=== PATIENT | male | born 1965 | race Caucasian/White ===

== ENCOUNTER 2016-08-04 16:30 | Observation (INO) | payer MEDICARE, MEDICAID ==
[~2016-08-04] VITALS: Ht 170.2 cm; Wt 75.4 kg
[2016-08-04 17:21] LABS: BASOPHILS % (AUTO) 0 % (0-2); EOSINOPHILS # (AUTO) 0.1 10^3uL; EOSINOPHILS % (AUTO) 1 % (0-4); LYMPHOCYTES # (AUTO) 3.1 X10^3; MEAN CORPUSCULAR HGB CONC 35.3 g/dL (31.0-37.0); MEAN CORPUSCULAR VOLUME 90 FL (80-100); MEAN PLATELET VOLUME 10.7 FL (6.0-9.5); MONOCYTES # (AUTO) 0.7 X10^3; MONOCYTES % (AUTO) 10 % (3-11); NEUTROPHILS # (AUTO) 3.7 X10^3; NEUTROPHILS % (AUTO) 49 % (51-67); PLATELET COUNT 149 10^3uL (150-450); WHITE BLOOD COUNT 7.61 10^3uL (4.0-11.0)
[2016-08-04 17:22] LABS: MEAN CORPUSCULAR HEMOGLOBIN 31.8 PG (26.0-34.0)
[2016-08-04 17:36] LABS: ALBUMIN 4.3 g/dL (3.4-5.0); ANION GAP 19.3 MEQ/L (3-15); TOTAL PROTEIN 7.5 g/dL (6.4-8.5)
[2016-08-04] MEDS ORDERED: LORazepam 2 MG/ML (ATIVAN) 1 ML VIAL IV ONE ×2 (18:35→20:35)
[2016-08-04 18:36] LABS: BILIRUBIN,URINE Negative (Negative); CLARITY,URINE Clear; COLOR,URINE Yellow; GLUCOSE, URINE (UA) Negative (Negative); LEUKOCYTE ESTERASE ,URINE Negative (Negative); UROBILINOGEN,URINE 0.2 mg/dL (0.2-1.0)
[2016-08-04 18:46] LABS: AMPHETAMINE SCREEN, URINE Positive (Negative); CANNABINOID SCREEN, URINE Positive (Negative); METHAMPHETAMINE SCREEN URINE S POSITIVE (NEGATIVE); OPIATE SCREEN URINE Negative (Negative); PROPOXYPHENE STAT NEGATIVE (NEGATIVE)
[2016-08-04] MEDS ORDERED: THIAMINE 100 MG/ML (VITAMIN B1) 2 ML VIAL ONE (20:34)
[2016-08-04] MEDS ORDERED: MULTIVITAMINS (MVI) 2 5 ML VIALS IV ONE (20:35)
[2016-08-04] MEDS ORDERED: MAGNESIUM SULFATE 1 GM/2 ML VIAL ONE ×2 (20:35→23:15)
[2016-08-04] MEDS: MAGNESIUM SULFATE 1GM VIAL 2 GM, THIAMINE INJ 100 MG, MULTIVITAMIN INJ 10 ML in D5LR 1,... IV SCH ×2 (20:40→23:16)
--- NOTE | 2016-08-04 21:34 | NUR ---
CLINICAL PRODUCT SPECIALIST JAYCOB MCLEAN NOTIFIED OF PT ADMIT TO ICU RM [id number]
[2016-08-04 21:40] VITALS: BP 105/77
[2016-08-04 21:43] VITALS: BP 105/77
[2016-08-04 22:00] VITALS: BP 100/69
[2016-08-04 23:00] VITALS: BP 98/68
[2016-08-04] MEDS ORDERED: HYDROmorphone 1 MG/ML (DILAUDID) SYRINGE IV PRN (23:05)
[2016-08-04] MEDS ORDERED: D5LR 1,000 ML IV ONE (23:14)
[2016-08-04] MEDS: LORazepam 2 MG/ML (ATIVAN) 1 ML VIAL IV PRN (23:15)
[2016-08-04] MEDS ORDERED: LORazepam 2 MG/ML (ATIVAN) 1 ML VIAL IV PRN (23:30)
[2016-08-04] MEDS ORDERED: HALOPERIDOL 5 MG/ML (HALDOL) 1 ML AMP IM PRN (23:30)
[2016-08-04] MEDS ORDERED: THIAMINE 100 MG/ML (VITAMIN B1) 2 ML VIAL IM SCH (23:30)
--- NOTE | 2016-08-04 23:30 | NUR ---
CORRECTION NOTE: CORRECT STOP TIME FOR ADMINISTERED 1 MG IV ATIVAN (ADMIN DATE AND TIME: 08/04/162314) IS 08/04/162317.
[2016-08-04] MEDS ORDERED: IBUPROFEN 600 MG (MOTRIN) TAB PO PRN (23:35)
[2016-08-04] MEDS ORDERED: ONDANSETRON 2 MG/ML (Z0FRAN) 2 ML VIAL IV PRN (23:35)
[2016-08-05] VITALS (9 sets, daily range): BP systolic 93–145; BP diastolic 55–91
[2016-08-05] MEDS: MULTIVITAMIN INJ 10 ML, THIAMINE INJ 100 MG, MAGNESIUM SULFATE 1GM VIAL 2 GM in D5LR 1,... IV SCH ×2 (00:14→13:01)
[2016-08-05] MEDS: MAGNESIUM SULFATE 1GM VIAL 2 GM, THIAMINE INJ 100 MG, MULTIVITAMIN INJ 10 ML in D5LR 1,... IV SCH (00:14)
[2016-08-05] MEDS: LORazepam 2 MG/ML (ATIVAN) 1 ML VIAL IV PRN ×4 (03:34→15:00)
[2016-08-05 06:35] LABS: BASOPHILS % (AUTO) 0 % (0-2); EOSINOPHILS # (AUTO) 0.1 10^3uL; EOSINOPHILS % (AUTO) 1 % (0-4); LYMPHOCYTES # (AUTO) 2.6 X10^3; MEAN CORPUSCULAR HEMOGLOBIN 31.1 PG (26.0-34.0); MEAN CORPUSCULAR HGB CONC 34.3 g/dL (31.0-37.0); MEAN CORPUSCULAR VOLUME 91 FL (80-100); MEAN PLATELET VOLUME 10.6 FL (6.0-9.5); MONOCYTES # (AUTO) 0.5 X10^3; MONOCYTES % (AUTO) 7 % (3-11); NEUTROPHILS # (AUTO) 3.4 X10^3; NEUTROPHILS % (AUTO) 51 % (51-67); PLATELET COUNT 149 10^3uL (150-450); WHITE BLOOD COUNT 6.58 10^3uL (4.0-11.0)
[2016-08-05 07:14] LABS: ALBUMIN 3.7 g/dL (3.4-5.0); ANION GAP 15.4 MEQ/L (3-15); CALCULATED IONIZED CALCIUM 3.7 mg/dL (3.8-4.6); TOTAL PROTEIN 6.9 g/dL (6.4-8.5)
--- NOTE | 2016-08-05 07:15 | NUR ---
See ICU assessment - reports chronic LBP and neck pain - "I need my meds" - "I'm so anxious" - drifts back to sleep if not talking - reports smokes 3 ppd - moist cough due to upper airway secretions - C
[2016-08-05] MEDS ORDERED: DOCUSATE SODIUM 100 MG (COLACE) CAP PO PRN (07:30)
[2016-08-05] MEDS ORDERED: MAGNESIUM HYDROXIDE 80MG/ML (MILK OF MAGNESIA) 30 ML UDC PO PRN (07:30)
[2016-08-05] MEDS ORDERED: MAG HYDROX/AL HYDROX/SIMETH 200-200-20/5 ML (MAG-AL PLUS) 30 ML UDC PO PRN (07:30)
[2016-08-05] MEDS ORDERED: HALOPERIDOL 5 MG/ML (HALDOL) 1 ML AMP IM PRN (07:30)
[2016-08-05] MEDS ORDERED: POLYETHYLENE GLYCOL 17 GM (MIRALAX) PACKET PO PRN (07:30)
[2016-08-05] MEDS ORDERED: ONDANSETRON 4 MG (ZOFRAN) TABLET PO PRN (07:30)
[2016-08-05] MEDS ORDERED: CALCIUM CARBONATE CHEWABLE 300 MG (TUMS) TABLET PO PRN (07:30)
--- NOTE | 2016-08-05 07:30 | NUR ---
Ibuprofen 600 mg po for c/o LBP
[2016-08-05] MEDS ORDERED: SODIUM CHLORIDE FLUSH 3 ML SYR ONE (07:34)
--- NOTE | 2016-08-05 07:50 | NUR ---
Ativan 1 mg slow IV push - mixed in 2 ML NS
--- NOTE | 2016-08-05 08:10 | NUR ---
Ate 50% of brkft - moves self in bed with ease - back to sleep
--- NOTE | 2016-08-05 08:35 | NUR ---
IV fluids DC'd
--- NOTE | 2016-08-05 08:48 | NUR ---
NUTRITION ASSESSMENT Level 1 Patient: Diego Lawson Age/Sex: 51/M Date Screened: 08-05-16 Weight: 165.8#/75.4 kg Height: 67 inches Primary Diagnosis: alcohol intoxication Diet Order: regular Relevant labs: serum alcohol 97.0 (410.0 on admission), UDS (+) amphetamines, methamphetamines and cannabinoids, glucose 99, AST 160, ALT 139 Food allergies: N Nutrition Assessment Criteria Age over 80: N Body Mass Index (BMI) under 19: N Admission Screening Indicates Risk? 3 points Moderate/High Risk Diagnosis: 6 points TPN or PPN: N NPO or clear liquid diet: N Serum Glucose <70 or >180: N Hgb A1c >6.7: N/A Total: 9 points Risk Screen: __ Patient at low nutritional risk based on available data; reevaluate in 5-7 days __ Patient at moderate nutritional risk based on available data; reevaluate in 3-5 days _X_ Patient at high nutritional risk; complete Nutrition Assessment within 48 hours of admission.
[2016-08-05] MEDS ORDERED: ATENOLOL 25 MG (TENORMIN) TAB PO SCH ×2 (09:00)
[2016-08-05] MEDS ORDERED: NICOTINE 21 MG (NICODERM) PATCH TD SCH ×2 (09:00)
[2016-08-05] MEDS ORDERED: LORazepam 2 MG/ML (ATIVAN) 1 ML VIAL IV PRN ×3 (09:00→17:10)
--- NOTE | 2016-08-05 09:20 | NUR ---
Radial pulse 92 - 50 mg tenormin po
[2016-08-05] MEDS ORDERED: NS FLUSH 10 ML PRN IV (09:30)
--- NOTE | 2016-08-05 09:50 | NUR ---
Estrella Rodriguez with [facility] will be here at 14:00 to evaluate Pt.
--- NOTE | 2016-08-05 10:25 | NUR ---
Condition report called to RN to assume care
--- NOTE | 2016-08-05 10:30 | NUR ---
Arrives per w/c to room 310 from ICU accompanied by Gaby ALLEN. Alert and oriented x4. Skin w/p/d. Resp reg and unlabored.
--- NOTE | 2016-08-05 10:30 | NUR ---
Ambulated to toilet - voided - startles when awaken and immediately asks for pain med and anxiety med - ambulated pushing w/c 30 feet - to room 310 - patient transferred self with ease to bed "I want chicken noodle soup and crackers, I haven't eaten for awhile" - "I want some pain med too"
--- NOTE | 2016-08-05 10:35 | NUR ---
Personal belongings taken to room
[2016-08-05] MEDS ORDERED: IBUPROFEN 600 MG (MOTRIN) TAB PO PRN (11:35)
--- NOTE | 2016-08-05 13:55 | NUR ---
Mandy mclean patient requesting pain med. Had to awaken patient for pain med at this time. Reports pain neck/back 10:10.
--- NOTE | 2016-08-05 14:15 | NUR ---
reports last BM 08/03
--- NOTE | 2016-08-05 14:32 | NUR ---
[facility] here to see patient
[2016-08-05] MEDS ORDERED: MAGNESIUM SULFATE 1 GM/2 ML VIAL ONE (14:58)
[2016-08-05] MEDS ORDERED: MULTIVITAMINS (MVI) 2 5 ML VIALS IV ONE (14:58)
[2016-08-05] MEDS: NS FLUSH 3 ML PRN IV ×2 (15:01→16:33)
[2016-08-05] MEDS ORDERED: MULTIVITAMIN INJ 10 ML, THIAMINE INJ 100 MG, MAGNESIUM SULFATE 1GM VIAL 2 GM in D5LR 1,... IV SCH (15:05)
--- NOTE | 2016-08-05 15:12 | NUR ---
[facility] here to see Pt. and recommends inpatient psychiatric placement due to Pt. still endorsing suicidal ideation and alcohol withdrawal. [facility] crisis team was contacted and they stated have openings at the [facility]. SW contacted them and faxed information over to [facility] to review.
--- NOTE | 2016-08-05 16:41 | NUR ---
Chicken noodle soup given earlier as request. Requesting more at this time. Mandy BARROS notified.
--- NOTE | 2016-08-05 18:12 | NUR ---
Transfered to [place] per EMS accompanied by EMS staff. ALert and oriented x 4. skin w/p/d. Resp reg and unlabored.
--- NOTE | 2016-08-05 18:20 | NUR ---
Mohini Braden at [facility] was notified of time of EMS departure as requested per [facility] green clerk.
[2016-08-06] MEDS ORDERED: NICOTINE PATCH REMOVAL TOP SCH (08:59)
[2016-08-06] MEDS ORDERED: NS FLUSH 3 ML DAILY IV SCH (09:00)
[2016-08-07] MEDS ORDERED: THIAMINE 100 MG (VITAMIN B-1) TAB PO SCH ×2 (08:00)
[2016-08-07] MEDS ORDERED: MULTIVITAMIN W/MINERALS (THERAGRAN M) TABLET PO SCH ×2 (08:00)
== END 2016-08-05 18:12 ==
LOC: ED 16:32 → ICU 20:46 → INTOOBSV 20:46 → MED/SURG 08-05 10:30
PROVIDERS: ADMIT Family Medicine; ATTEND Family Medicine
DX: F10.220 Alcohol dependence with intoxication, uncomplicated (principal); F15.220 Other stimulant dependence with intoxication, uncomplicated; F25.9 Schizoaffective disorder, unspecified; R45.851 Suicidal ideations; F60.9 Personality disorder, unspecified; F41.9 Anxiety disorder, unspecified; B19.20 Unspecified viral hepatitis C without hepatic coma; I10 Essential (primary) hypertension; J44.9 Chronic obstructive pulmonary disease, unspecified; F17.210 Nicotine dependence, cigarettes, uncomplicated
CPT/HCPCS: 36415; 80053; 81003; 82140; 82150; 83690; 84484; 85025; 93005; 96361; 96365; 96372; 96375; 96376; 99283; A9270; G0378; G0478; G0480; J1170; J1630; J2060; J3411; J3475; J7030; 80307; 80320; 93010; 96374; 99218; 99285

== ENCOUNTER → 2016-08-05 | Outpatient (CLI) | payer MEDICARE, MEDICAID | LOC: EMS 18:15 | PROVIDERS: ATTEND Internal Medicine | DX: R45.851 Suicidal ideations (principal); F20.9 Schizophrenia, unspecified ==

== ENCOUNTER 2016-10-16 16:23 | Observation (INO) | payer MEDICARE, MEDICAID ==
[~2016-10-16] VITALS: Ht 170.2 cm; Wt 77.3 kg
[~2016-10-16 16:23] MED LIST: ACHYD1T PO; ALBU2.5V4 IH; ARIP10TA14 PO; CEPH-507 PO; CHLR25C PO; CLIN-78 PO; CLIN-79 PO; CMBV14CC IH; CMBV14CC INH; CPR500T PO; DOXY100T41 PO; ESCI10TA PO; ESCI20TA39 PO; FAMO-119 PO; HYDR-3708 PO; HYDR-3811 PO; IBUP-1096 PO; IPRA12.92 IH; IPRA4AER; IPRA4AER INH; LEVO50TA6 EC; LEVO50TA6 PO; LIDOVISC MT; LITH300T PO; LITH600C PO; LVT.05T PO; Lithium; MELO-255; MELO-255 PO; METH10TA2 PO; MMT17NA; Methadone; NFPRILOC40 PO; NFVALS90T PO; OLAN10TA3 PO; OLN10T; OLN10T PO; OMEP20CA12 PO; OMEP40CA36; OMEP40CA36 PO; OXYC10TA7 PO; OXYC10TA74 PO; OXYC15TA79 PO; Oxycodone; PRX10T PO; SULF-221 PO; SYNTROID; TIOT18CA; TIOT18CA IH; TIOT18CA INH; TOPI50CA5 PO; TRAM100T28 PO; TRAZ100T92 PO; TRM50T PO; VALS160T2 PO; VALS160T23 PO; VALS320T11 PO; VALS80TA29 PO
--- OUTSIDE RECORDS SUMMARY | 2016-10-16 16:29 | XMS REPORT | Continuity of Care Document ---
Author Author [facility] Organization [facility] Address Unknown Phone Unavailable Allergies Active Description Code Type Severity Reaction Onset Reported/Identified Relationship to Patient Clinical Status Yes No Known Drug Allergies [id number] Drug Allergy Unknown N/ A 01/07/2012 Yes No Known Medication Allergies NKMA N/A N/A 08/13/2014 Yes No Known Allergies [id number] Drug Allergy Unknown N/A 08/04/2016 Medications Problems Date Dx Coded Attending Type Code Diagnosis Diagnosed By 01/07/2012 Ot 782.1 01/07/2012 Ot 995.3 04/06/2012 Ot 303.00 06/22/2012 Ot 724.2 02/12/2014 JERI HOFFMAN DO Ot 276.51 02/12/2014 JERI HOFFMAN DO Ot 291.9 02/12/2014 JERI HOFFMAN DO Ot 304.81 02/12/2014 JERI HOFFMAN DO Ot 305.00 02/12/2014 JERI HOFFMAN DO Ot 305.01 02/12/2014 JERI HOFFMAN DO Ot 780.97 02/12/2014 JERI HOFFMAN DO Ot V15.81 02/18/2014 SANTA JENKINS, CECIL L Ot 521.00 02/18/2014 SANTA JENKINS, CECIL L Ot 525.9 02/18/2014 SANTA JENKINS, CECIL L Ot 784.92 04/07/2014 DANA JENKINS, LALY Ot 305.00 04/07/2014 DANA JENKINS, LALY Ot 338.29 04/07/2014 DANA JENKINS, LALY Ot 719.45 04/07/2014 DANA JENKINS, LALY Ot 723.1 04/07/2014 DANA JENKINS, LALY Ot 724.2 04/07/2014 DANA JENKINS, LALY Ot 782.0 04/07/2014 DANA JENKINS, LALY Ot 784.0 04/07/2014 DANA JENKINS, LALY Ot 959.19 04/07/2014 DANA JENKINS, LALY Ot E885.9 05/11/2014 DANA JENKINS, LALY Ot 724.2 05/31/2014 JOSE JENKINS, AMRIK H Ot 070.70 05/31/2014 JOSE JENKINS, AMRIK H Ot 244.9 05/31/2014 JOSE JENKINS, AMRIK H Ot 295.70 05/31/2014 JOSE JENKINS, AMRIK H Ot 303.00 05/31/2014 JOSE JENKINS, AMRIK H Ot 305.1 05/31/2014 JOSE JENKINS, AMRIK H Ot 305.70 05/31/2014 JOSE JENKINS, AMRIK H Ot 327.23 05/31/2014 JOSE JENKINS, AMRIK H Ot 338.29 05/31/2014 JOSE JENKINS, AMRIK H Ot 401.9 05/31/2014 JOSE JENKINS, AMRIK H Ot 477.9 05/31/2014 JOSE JENKINS, AMRIK H Ot 492.8 05/31/2014 JOSE JENKINS, AMRIK H Ot 521.00 05/31/2014 JOSE JENKINS, AMRIK H Ot 530.81 05/31/2014 JOSE JENKINS, AMRIK H Ot 571.1 05/31/2014 JOSE JENKINS, AMRIK H Ot 780.96 05/31/2014 JOSE JENKINS, AMRIK H Ot 786.50 05/31/2014 JOSE JENKINS, AMRIK H Ot 790.5 07/02/2014 JOSE JENKINS, AMRIK H Ot 295.90 07/04/2014 RICHARD JENKINS, DEACON P Ot 070.70 07/04/2014 RICHARD JENKINS, DEACON P Ot 244.9 07/04/2014 RICHARD JENKINS, DEACON P Ot 303.00 07/04/2014 RICHARD JENKINS, DEACON P Ot 305.90 07/04/2014 RICHARD JENKINS, DEACON P Ot 401.9 07/04/2014 RICHARD JENKINS, DEACON P Ot 492.8 07/04/2014 RICHARD JENKINS, DEACON P Ot 521.00 07/04/2014 RICHARD JENKINS, DEACON P Ot 530.81 07/04/2014 RICHARD JENKINS, DEACON P Ot 719.41 07/11/2014 OLGA QUINTANILLA DO Ot 719.41 07/11/2014 DWIGHT DO, OLGA Hernandez Ot 923.00 07/11/2014 DWIGHT DO, OLGA Hernandez Ot 924.01 07/11/2014 DWIGHT DO, OLGA Hernandez Ot E849.0 07/11/2014 DWIGHT DO, OLGA Hernandez Ot E885.9 07/20/2014 DWIGHT DO, OLGA Hernandez Ot 496 07/20/2014 DWIGHT DO, OLGA Hernandez Ot 719.45 07/20/2014 DWIGHT DO, OLGA Hernandez Ot E888.9 07/27/2014 RICHARD JENKINS, DEACON P Ot 296.80 07/27/2014 RICHARD JENKINS, DEACON P Ot 496 08/17/2014 DWIGHT DO, OLGA M Ot 496 08/17/2014 DWIGHT DO, OLGA Hernandez Ot 719.45 08/17/2014 DWIGHT DO, OLGA Hernandez Ot E888.9 08/20/2014 DWIGHT DO, OLGA Hernandez Ot 496 08/20/2014 DWIGHT DO, OLGA Hernandez Ot 719.45 08/20/2014 DWIGHT DO, OLGA Hernandez Ot E888.9 09/03/2014 Ot 305.01 09/03/2014 Ot 305.1 09/03/2014 Ot 305.70 09/03/2014 Ot 311 09/03/2014 Ot V62.84 09/27/2014 RICHARD JENKINS, DEACON P Ot 070.70 09/27/2014 RICHARD JENKINS, DEACON P Ot 244.9 09/27/2014 RICHARD JENKINS, DEACON P Ot 275.2 09/27/2014 RICHARD JENKINS, DEACON P Ot 275.3 09/27/2014 RICHARD JENKINS, DEACON P Ot 291.81 09/27/2014 RICHARD JENKINS, DEACON P Ot 303.00 09/27/2014 RICHARD JENKINS, DEACON P Ot 305.1 09/27/2014 RICHARD JENKINS, DEACON P Ot 305.90 09/27/2014 RICHARD JENKINS, DEACON P Ot 327.23 09/27/2014 RICHARD JENKINS, DEACON P Ot 338.29 09/27/2014 RICHARD JENKINS, DEACON P Ot 401.9 09/27/2014 RICHARD JENKINS, DEACON P Ot 477.9 09/27/2014 RICHARD JENKINS, DEACON P Ot 496 09/27/2014 RICHARD JENKINS, DEACON P Ot 521.00 09/27/2014 RICHARD JENKINS, DEACON P Ot 530.81 09/27/2014 RICHARD JENKINS, DEACON P Ot 802.0 09/27/2014 RICHARD JENKINS, DEACON P Ot 919.0 09/27/2014 RICHARD JENKINS, DEACON P Ot E000.8 09/27/2014 RICHARD JENKINS, DEACON P Ot E030 09/27/2014 RICHARD JENKINS, DEACON P Ot E849.7 09/27/2014 RICHARD JENKINS, DEACON P Ot E888.9 10/18/2014 CHELE JENKINS, CARLITA P Ot 784.7 11/25/2014 LUCRECIA JENKINS, NESSA R Ot 305.00 11/25/2014 LUCRECIA JENKINS, NESSA R Ot 305.90 11/25/2014 LUCRECIA JENKINS, NESSA R Ot 682.4 11/28/2014 RICHARD JENKINS, DEACON P Ot 070.70 11/28/2014 RICHARD JENKINS, DEACON P Ot 244.9 11/28/2014 RICHARD JENKINS, DEACON P Ot 303.00 11/28/2014 RICHARD JENKINS, DEACON P Ot 305.1 11/28/2014 RICHARD JENKINS, DEACON P Ot 305.90 11/28/2014 RICHARD JENKINS, DEACON P Ot 327.23 11/28/2014 RICHARD JENKINS, DEACON P Ot 338.29 11/28/2014 RICHARD JENKINS, DEACON P Ot 401.9 11/28/2014 RICHARD JENKINS, DEACON P Ot 477.9 11/28/2014 RICHARD JENKINS, DEACON P Ot 496 11/28/2014 RICHARD JENKINS, DEACON P Ot 521.00 11/28/2014 RICHARD JENKINS, DEACON P Ot 530.81 11/28/2014 RICHARD JENKINS, DEACON P Ot 682.4 12/02/2014 Ot V58.69 12/02/2014 Ot V58.69 12/02/2014 Ot V64.2 12/02/2014 DANA JENKINS, LALY Ot 724.2 12/02/2014 Ot 786.09 12/02/2014 JOSE JENKINS, AMRIK Cruz Ot 295.90 12/02/2014 RICHARD JENKINS, DEACON P Ot 296.80 12/02/2014 RICHARD JENKINS, DEACON P Ot 496 12/02/2014 DWIGHT DO, OLGA M Ot 496 12/02/2014 DWIGHT DO, OLGA M Ot 719.45 12/02/2014 DWIGHT DO, OLGA M Ot E888.9 12/02/2014 CHELE JENKINS, CARLITA Mccrary Ot 784.7 12/02/2014 CHELE JENKINS, CARLITA P Ot 682.4 12/06/2014 RICHARD JENKINS, DEACON P Ot 070.70 12/06/2014 RICHARD JENKINS, DEACON P Ot 295.72 12/06/2014 RICHARD JENKINS, DEACON P Ot 303.00 12/06/2014 RICHARD JENKINS, DEACON P Ot 305.90 12/06/2014 RICHARD JENKINS, DEACON P Ot 327.23 12/06/2014 RICHARD JENKINS, DEACON P Ot 338.29 12/06/2014 RICHARD JENKINS, DEACON P Ot 401.9 12/06/2014 RICHARD JENKINS, DEACON P Ot 496 12/06/2014 RICHARD JENKINS, DEACON P Ot 530.81 12/06/2014 RICHARD JENKINS, DEACON P Ot 682.4 12/06/2014 RICHARD JENKINS, DEACON P Ot 786.50 12/06/2014 RICHARD JENKINS, DEACON P Ot V62.84 12/31/2014 RICHARD JENKINS, DEACON P Ot 305.90 01/08/2015 DWIGHT DO, OLGA M Ot 305.00 01/08/2015 DWIGHT DO, OLGA M Ot 305.90 01/10/2015 Ot V58.69 01/10/2015 Ot V58.69 01/10/2015 Ot V64.2 01/10/2015 DANA JENKINS, LALY Ot 724.2 01/10/2015 Ot 786.09 01/10/2015 JOSE JENKINS, AMRIK Cruz Ot 295.90 01/10/2015 RICHARD JENKINS, DEACON P Ot 296.80 01/10/2015 RICHARD JENKINS, DEACON P Ot 496 01/10/2015 DWIGHT DO, OLGA M Ot 496 01/10/2015 DWIGHT DO, OLGA M Ot 719.45 01/10/2015 DWIGHT DO, OLGA M Ot E888.9 01/10/2015 CHELE JENKINS, CARLITA Mccrary Ot 784.7 01/10/2015 RICHARD JENKINS, DEACON Mccrary Ot 305.90 01/10/2015 DWIGHT DO, OLGA M Ot 891.0 01/10/2015 DWIGHT DO, OLGA M Ot E000.9 01/10/2015 DWIGHT DO, OLGA M Ot E030 01/10/2015 DWIGHT DO, OLGA M Ot E849.0 01/10/2015 DWIGHT DO, OLGA M Ot E920.9 01/25/2015 RICHARD JENKINS, DEACON Mccrary Ot 305.90 02/08/2015 Ot 786.09 03/22/2015 Ot V58.69 03/22/2015 Ot V58.69 03/22/2015 Ot V64.2 03/22/2015 DANA JENKINS, LALY Ot 724.2 03/22/2015 Ot 786.09 03/22/2015 JOSE JENKINS, AMRIK H Ot 295.90 03/22/2015 RICHARD JENKINS, DEACON Mccrary Ot 296.80 03/22/2015 RICHARD JENKINS, DEACON Mccrary Ot 496 03/22/2015 DWIGHT DO, OLGA M Ot 496 03/22/2015 DWIGHT DO, OLGA M Ot 719.45 03/22/2015 DWIGHT DO, OLGA M Ot E888.9 03/22/2015 CHELE JENKINS, CARLITA P Ot 784.7 03/22/2015 RICHARD JENKINS, DEACON Mccrary Ot 305.90 03/22/2015 Ot V58.69 03/22/2015 Ot V58.69 03/22/2015 Ot V64.2 03/22/2015 DANA JENKINS, LALY Ot 724.2 03/22/2015 Ot 786.09 03/22/2015 JOSE JENKINS, AMRIK H Ot 295.90 03/22/2015 RICHARD JENKINS, DEACON Mccrary Ot 296.80 03/22/2015 RICHARD JENKINS, DEACON Mccrary Ot 496 03/22/2015 DWIGHT DO, OLGA M Ot 496 03/22/2015 DWIGHT DO, OLGA M Ot 719.45 03/22/2015 DWIGHT DO, OLGA M Ot E888.9 03/22/2015 CHEEL JENKINS, CARLITA P Ot 784.7 03/22/2015 RICHARD JENKINS, DEACON P Ot 305.90 03/30/2015 Ot V58.69 03/30/2015 Ot V58.69 03/30/2015 Ot V64.2 03/30/2015 DANA JENKINS, LALY Ot 724.2 03/30/2015 Ot 786.09 03/30/2015 JOSE JENKINS, AMRIK Cruz Ot 295.90 03/30/2015 RICHARD JENKINS, DEACON P Ot 296.80 03/30/2015 RICHARD JENKINS, DEACON P Ot 496 03/30/2015 DWIGHT DO, OLGA M Ot 496 03/30/2015 DWIGHT DO, OLGA M Ot 719.45 03/30/2015 DIWGHT DO, OLGA M Ot E888.9 03/30/2015 CHELE JENKINS, CARLITA Mccrary Ot 784.7 03/30/2015 RICHARD JENKINS, DEACON P Ot 305.90 04/02/2015 RICHARD JENKINS, DEACON P Ot B19.20 04/02/2015 RICHARD JENKINS, DEACON P Ot E03.9 04/02/2015 RICHARD JENKINS, DEACON P Ot F10.129 04/02/2015 RICHARD JENKINS, DEACON P Ot F10.239 04/02/2015 RICHARD JENKINS, DEACON P Ot F19.90 04/02/2015 RICHARD JENKINS, DEACON P Ot F41.9 04/02/2015 RICHARD JENKINS, DEACON P Ot I10 04/02/2015 RICHARD JENKINS, DEACON P Ot J44.1 04/02/2015 RICHARD JENKINS, DEACON P Ot J80 04/02/2015 RICHARD JENKISN, DEACON P Ot K21.9 04/02/2015 RICHARD JENKINS, DEACON P Ot R79.89 04/02/2015 RICHARD JENKINS, DEACON P Ot T74.11XA 04/02/2015 RICHARD JENKINS, DEACON P Ot Y90.8 04/15/2015 BELEN JENKINS, DWAIN Yoo Ot E87.0 04/15/2015 BELEN JENKINS, DWAIN W Ot F10.129 04/15/2015 BELEN JENKINS, DWAIN W Ot F10.20 04/15/2015 BELEN JENKINS, DWAIN Yoo Ot F19.10 04/15/2015 BELEN JENKINS, DWAIN Yoo Ot F20.9 04/15/2015 BELEN JENKINS, DWAIN Yoo Ot F41.9 04/15/2015 BELEN JENKINS, DWAIN W Ot J44.9 04/15/2015 BELEN JENKINS, DWAIN W Ot Y90.8 05/03/2015 Ot 786.09 07/25/2015 Ot V58.69 07/25/2015 Ot V58.69 07/25/2015 Ot V64.2 07/25/2015 DANA JENKINS, LALY Ot 724.2 07/25/2015 Ot 786.09 07/25/2015 JOSE JENKINS, AMRIK Cruz Ot 295.90 07/25/2015 RICHARD JENKINS, DEACON Mccrary Ot 296.80 07/25/2015 RICHARD JENKINS, DEACON Mccrary Ot 496 07/25/2015 DWIGHT DO, OLGA Hernandez Ot 496 07/25/2015 DWIGHT DO, OLGA M Ot 719.45 07/25/2015 DWIGHT DO, OLGA M Ot E888.9 07/25/2015 CHLEE JENKINS, CARLITA Mccrary Ot 784.7 07/25/2015 RICHARD JENKINS, DEACON Mccrary Ot 305.90 07/26/2015 BELEN JENKINS, DWAIN Yoo Ot B19.20 07/26/2015 BELEN JENKINS, DWAIN Yoo Ot F10.220 07/26/2015 BELEN JENKINS, DWAIN W Ot F11.20 07/26/2015 BELEN JENKINS, DWAIN W Ot F25.9 07/26/2015 BELEN JENKINS, DWAIN Yoo Ot G89.29 07/26/2015 BELEN JENKINS, DWAIN Yoo Ot K13.21 07/26/2015 BELEN JENKINS, DWAIN W Ot S01.21XA 07/26/2015 BELEN JENKINS, DWAIN W Ot S01.81XA 07/26/2015 BELEN JENKINS, DWAIN W Ot S51.011A 07/26/2015 BELEN JENKINS, DWAIN Yoo Ot Y08.02XA 08/10/2015 RICHARD JENKINS, DEACON Mccrary Ot B19.20 08/10/2015 RICHARD JENKINS, DEACON P Ot F10.220 08/10/2015 RICHARD JENKINS, DEACON P Ot F11.20 08/10/2015 RICHARD JENKINS, DEACON Mccrary Ot F15.10 08/10/2015 RICHARD JENKINS, DEACON P Ot F25.9 08/10/2015 RICHARD JENKINS, DEACON P Ot G47.33 08/10/2015 RICHARD JENKINS, DEACON P Ot G89.21 08/10/2015 RICHARD JENKINS, DEACON P Ot I10 08/10/2015 RICHARD JENKINS, DEACON P Ot J18.9 08/10/2015 RICHARD JENKINS, DEACON P Ot J44.9 08/10/2015 RICHARD JENKINS, DEACON P Ot K13.21 08/10/2015 RICHARD JENKINS, DEACON P Ot K21.9 08/10/2015 RICHARD JENKINS, DEACON P Ot R45.851 08/10/2015 RICHARD JENKINS, DEACON P Ot Z72.0 08/13/2015 EVA JENKINS, SIMÓN W Ot B19.20 08/13/2015 EVA JENKINS, SIMÓN W Ot F10.129 08/13/2015 EVA JENKINS, SIMÓN W Ot F11.20 08/13/2015 EVA JENKINS, SIMÓN Yoo Ot F17.210 08/13/2015 EVA JENKINS, SIMÓN Yoo Ot I10 08/13/2015 EVA JENKINS, SIMÓN W Ot M54.5 08/13/2015 EVA JENKINS, SIMÓN W Ot R07.89 08/13/2015 EVA JENKINS, SIMÓN Yoo Ot Y90.7 08/13/2015 EVA JENKINS, SIMÓN W Ot Z91.19 08/14/2015 EVA JENKINS, SIMÓN W Ot F10.129 08/14/2015 EVA JENKINS, SIMÓN Yoo Ot S01.81XA 08/14/2015 EVA JENKINS, SIMÓN Yoo Ot Y08.02XA 08/14/2015 EVA JENKINS, SIMÓN Yoo Ot Y92.029 08/23/2015 EVA JENKINS, SIMÓN Yoo Ot F10.129 08/23/2015 EVA JENKINS, SIMÓN Yoo Ot S01.81XA 08/23/2015 EVA JENKINS, SIMÓN Yoo Ot Y08.02XA 08/23/2015 EVA JENKINS, SIMÓN Yoo Ot Y92.029 08/25/2015 DANA JENKINS, LALY Ot F10.10 08/25/2015 DANA JENKINS, LALY Ot G89.29 08/25/2015 DANA JENKINS, LALY Ot I10 08/25/2015 DANA JENKINS, LALY Ot K04.7 08/25/2015 DANA JENKINS, LALY Ot M54.2 08/25/2015 DANA JENKINS, LALY Ot M54.89 08/25/2015 DANA JENKINS, LALY Ot R51 08/25/2015 DANA JENKINS, LALY Ot W21.11XA 08/25/2015 DANA JENKINS, LALY Ot Z72.0 09/11/2015 DANA JENKINS, LALY Ot F10.129 09/11/2015 DANA JENKINS, LALY Ot F99 09/13/2015 SIMÓN VELASQUEZ MD Ot R06.02 09/13/2015 SIMÓN VELASQUEZ MD Ot R07.9 09/13/2015 SIMÓN VELASQUEZ MD Ot R10.84 09/13/2015 SIMÓN VELASQUEZ MD Ot R55 09/19/2015 KWABENA VAUGHN MD, GALLO J Ot B19.20 09/19/2015 KWABENA VAUGHN MD, GALLO J Ot E86.0 09/19/2015 KWABENA VAUGHN MD, GALLO J Ot E87.0 09/19/2015 KWABENA VAUGHN MD, GALLO J Ot E87.2 09/19/2015 KWABENA VAUGHN MD, GALLO J Ot F10.220 09/19/2015 KWABENA VAUGHN MD, GALLO J Ot F15.10 09/19/2015 KWABENA VAUGHN MD, GALLO J Ot J44.9 09/19/2015 KWABENA VAUGHN MD, GALLO J Ot J80 09/19/2015 KWABENA VAUGHN MD, GALLO J Ot K13.21 09/19/2015 KWABENA VAUGHN MD, GALLO J Ot R56.9 09/19/2015 KWABENA VAUGHN MD, GALLO J Ot Y90.8 09/19/2015 LUCRECIA JENKINS, NESSA R Ot F99 09/19/2015 LUCRECIA JENKINS, NESSA R Ot R41.82 09/20/2015 DANA JENKINS, LALY Ot F10.129 09/20/2015 DANA JENKINS, LALY Ot F99 09/20/2015 SIMÓN VELASQUEZ MD Ot R06.02 09/20/2015 SIMÓN VELASQUEZ MD Ot R07.9 09/20/2015 SIMÓN VELASQUEZ MD Ot R10.84 09/20/2015 SIMÓN VELASQUEZ MD Ot R55 09/20/2015 Ot Z53.9 09/22/2015 Ot V58.69 09/22/2015 Ot V58.69 09/22/2015 Ot V64.2 09/22/2015 DANA JENKINS, LALY Ot 724.2 09/22/2015 Ot 786.09 09/22/2015 JOSE JENKINS, AMRIK H Ot 295.90 09/22/2015 RICHARD JENKINS, DEACON P Ot 296.80 09/22/2015 RICHARD JENKINS, DEACON P Ot 496 09/22/2015 DWIGHT DO, OLGA M Ot 496 09/22/2015 DWIGHT DO, OLGA M Ot 719.45 09/22/2015 DWIGHT DO, OLGA M Ot E888.9 09/22/2015 CHELE JENKINS, CARLITA Mccrary Ot 784.7 09/22/2015 RICHARD JENKINS, DEACON P Ot 305.90 09/22/2015 EVA JENKINS, SIMÓN Yoo Ot F10.129 09/22/2015 EVA JENKINS, SIMÓN Yoo Ot S01.81XA 09/22/2015 EVA JENKINS, SIMÓN Yoo Ot Y08.02XA 09/22/2015 EVA JENKINS, SIMÓN Yoo Ot Y92.029 09/22/2015 DANA JENKINS, LALY Ot F10.129 09/22/2015 DANA JENKINS, LALY Ot F99 09/22/2015 EVA JENKINS, SIMÓN Yoo Ot R06.02 09/22/2015 EVA JENKINS, SIMÓN Yoo Ot R07.9 09/22/2015 EVA JENKINS, SIMÓN Yoo Ot R10.84 09/22/2015 EVA JENKINS, SIMÓN Yoo Ot R55 09/22/2015 LUCRECIA JENKINS, NESSA Gamez Ot F99 09/22/2015 LUCRECIA JENKINS, NESSA Gamez Ot R41.82 09/22/2015 KATIUSKA PARKER DO Ot R07.81 PLEURODYNIA 09/22/2015 KATIUSKA PARKER DO Ot S22.31XA FRACTURE OF ONE RIB, RIGHT SIDE, INIT FO 09/22/2015 KATIUSKA PARKER DO Ot W19.XXXA UNSPECIFIED FALL, INITIAL ENCOUNTER 09/22/2015 KATIUSKA PARKER DO Ot Y92.[address] IN [facility] NON-INSTITUT ( PRIVATE 09/22/2015 KEITH DOZIER KATIUSKA Hernandez Ot Y93.89 ACTIVITY, OTHER SPECIFIED 09/24/2015 Ot Z53.9 09/25/2015 KEITH DOZIER KATIUSKA Hernandez Ot R07.81 09/25/2015 KEITH DOZIER KATIUSKA Hernandez Ot S22.31XA 09/25/2015 KEITH DOZIER KATIUSKA Hernandez Ot W19.XXXA 09/25/2015 KEITH DOZIER KATIUSKA Hernandez Ot Y92.009 09/25/2015 KEITH DOZIER KATIUSKA Hernandez Ot Y93.89 10/09/2015 NESSA SINGER MD Ot F99 10/09/2015 NESSA SINGER MD R Ot R41.82 10/16/2015 KEITH DOZIERKATIUSKA Ot F10.10 ALCOHOL ABUSE, UNCOMPLICATED 10/16/2015 KEITH DOZIER KATIUSKA Hernandez Ot R07.81 PLEURODYNIA 10/16/2015 KEITH DOZIER KATIUSKA Hernandez Ot W01.190A FALL SAME LEV FROM SLIP/TRIP W STRIKE AG 10/22/2015 LUCRECIA JENKINS, NESSA R Ot F99 MENTAL DISORDER, NOT OTHERWISE SPECIFIED 10/22/2015 NESSA SINGER MD R Ot R41.82 ALTERED MENTAL STATUS, UNSPECIFIED 10/22/2015 KEITH DOZIER KATIUSKA Mary Ot F10.10 ALCOHOL ABUSE, UNCOMPLICATED 10/22/2015 KEITH DOZIER KATIUSKA Mary Ot R07.81 PLEURODYNIA 10/22/2015 KEITH DOZIER KATIUSKA Mary Ot W01.190A FALL SAME LEV FROM SLIP/TRIP W STRIKE AG 01/03/2016 CARLITA ELAINE MD Ot F10.10 ALCOHOL ABUSE, UNCOMPLICATED 01/03/2016 CARLITA ELAINE MD Ot S00.93XA CONTUSION OF UNSPECIFIED PART OF HEAD, I 01/03/2016 CARLITA ELAINE MD Ot W18.39XA OTHER FALL ON SAME LEVEL, INITIAL ENCOUN 01/03/2016 CARLITA ELAINE MD Ot Y90.8 BLOOD ALCOHOL LEVEL OF 240 MG/100 ML OR 01/03/2016 CARLITA ELAINE MD Ot Y92.[address] IN [facility] NON-INST[facility] ( PRIVATE 01/07/2016 MIGGIANI MD, CARLITA P Ot F10.129 ALCOHOL ABUSE WITH INTOXICATION, UNSPECI 01/07/2016 CARLITA ELAINE MD Ot R55 SYNCOPE AND COLLAPSE 01/09/2016 CARLITA ELAINE MD Ot F10.10 ALCOHOL ABUSE, UNCOMPLICATED 01/09/2016 CARLITA ELAINE MD Ot S00.93XA CONTUSION OF UNSPECIFIED PART OF HEAD, I 01/09/2016 CARLITA ELAINE MD Ot W18.39XA OTHER FALL ON SAME LEVEL, INITIAL ENCOUN 01/09/2016 CARLITA ELAINE MD Ot Y90.8 BLOOD ALCOHOL LEVEL OF 240 MG/100 ML OR 01/09/2016 CARLITA ELAINE MD Ot Y92.[address] IN [facility] NON-INSTITUT ( PRIVATE 01/30/2016 CARLITA ELAINE MD Ot F10.129 ALCOHOL ABUSE WITH INTOXICATION, UNSPECI 01/30/2016 CARLITA ELAINE MD Ot R55 SYNCOPE AND COLLAPSE 02/17/2016 CARLITA ELAINE MD Ot F10.129 ALCOHOL ABUSE WITH INTOXICATION, UNSPECI 02/17/2016 CARLITA ELAINE MD Ot R55 SYNCOPE AND COLLAPSE 02/27/2016 SIMÓN VELASQUEZ MD, Ot F10.129 ALCOHOL ABUSE WITH INTOXICATION, UNSPECI 02/27/2016 SIMÓN VELASQUEZ MD, Ot F17.200 NICOTINE DEPENDENCE, UNSPECIFIED, UNCOMP 02/27/2016 SIMÓN VELASQUEZ MD, Ot G50.1 ATYPICAL FACIAL PAIN 02/27/2016 SIMÓN VELASQUEZ MD, Ot 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 CHRONIC MAXILLARY SINUSITIS 02/27/2016 SIMÓN VELASQUEZ MD, Ot J34.1 CYST AND MUCOCELE OF NOSE AND NASAL SINU 02/27/2016 SIMÓN VELASQUEZ MD, Ot K04.7 PERIAPICAL ABSCESS WITHOUT SINUS 02/27/2016 SIMÓN VELASQUEZ MD, Ot Y90.7 BLOOD ALCOHOL LEVEL OF 200-239 MG/100 ML 03/03/2016 SIMÓN VELASQUEZ MD Ot F17.200 NICOTINE DEPENDENCE, UNSPECIFIED, UNCOMP 03/03/2016 SIMÓN VELASQUEZ MD, Ot G50.1 ATYPICAL FACIAL PAIN 03/03/2016 SIMÓN VELASQUEZ MD, Ot J32.0 CHRONIC MAXILLARY SINUSITIS 03/03/2016 SIMÓN VELASQUEZ MD, Ot J34.1 CYST AND MUCOCELE OF NOSE AND NASAL SINU 03/03/2016 SIMÓN VELASQUEZ MD, Ot K04.7 PERIAPICAL ABSCESS WITHOUT SINUS 03/03/2016 SIMÓN VELASQUEZ MD, Ot F10.129 ALCOHOL ABUSE WITH INTOXICATION, UNSPECI 03/03/2016 SIMÓN VELASQUEZ MD, Ot F17.200 NICOTINE DEPENDENCE, UNSPECIFIED, UNCOMP 03/03/2016 SIMÓN VELASQUEZ MD, Ot G50.1 ATYPICAL FACIAL PAIN 03/03/2016 SIMÓN VELASQUEZ MD, Ot J32.0 CHRONIC MAXILLARY SINUSITIS 03/03/2016 SIMÓN VELASQUEZ MD, Ot J34.1 CYST AND MUCOCELE OF NOSE AND NASAL SINU 03/03/2016 SIMÓN VELASQUEZ MD, Ot K04.7 PERIAPICAL ABSCESS WITHOUT SINUS 03/03/2016 SIMÓN VELASQUEZ MD, Ot Y90.7 BLOOD ALCOHOL LEVEL OF 200-239 MG/100 ML 06/19/2016 CARLITA ELAINE MD Ot F10.129 ALCOHOL ABUSE WITH INTOXICATION, UNSPECI 06/19/2016 CARLITA ELAINE MD Ot R55 SYNCOPE AND COLLAPSE 08/05/2016 AMRIK GARCIA MD Ot B19.20 UNSPECIFIED VIRAL HEPATITIS C WITHOUT HE 08/05/2016 AMRIK GARCIA MD Ot F10.220 ALCOHOL DEPENDENCE WITH INTOXICATION, UN 08/05/2016 AMRIK GARCIA MD Ot 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 08/05/2016 AMRIK GARCIA MD Ot F17.210 NICOTINE DEPENDENCE, CIGARETTES, UNCOMPL 08/05/2016 AMRIK GARCIA MD Ot F25.9 SCHIZOAFFECTIVE DISORDER, UNSPECIFIED 08/05/2016 AMRIK GARCIA MD Ot F41.9 ANXIETY DISORDER, UNSPECIFIED 08/05/2016 AMRIK GARCIA MD Ot F60.9 PERSONALITY DISORDER, UNSPECIFIED 08/05/2016 AMRIK GARCIA MD Ot I10 ESSENTIAL (PRIMARY) HYPERTENSION 08/05/2016 AMRIK GARCIA MD Ot J44.9 CHRONIC OBSTRUCTIVE PULMONARY DISEASE, U 08/05/2016 AMRIK GARCIA MD Ot R45.851 SUICIDAL IDEATIONS 08/11/2016 DEACON RAMOS MD, Ot F20.9 SCHIZOPHRENIA, UNSPECIFIED 08/11/2016 DEACON RAMOS MD Ot R45.851 SUICIDAL IDEATIONS 08/20/2016 DEACON RAMOS MD, Ot F20.9 SCHIZOPHRENIA, UNSPECIFIED 08/20/2016 DEACON RAMOS MD, Ot R45.851 SUICIDAL IDEATIONS 08/28/2016 DEACON RAMOS MD, Ot F20.9 SCHIZOPHRENIA, UNSPECIFIED 08/28/2016 DEACON RAMOS MD, Ot R45.851 SUICIDAL IDEATIONS Procedures Code Description Performed By Performed On 86.04 11/28/2014 94.62 12/05/2014 [id number] 07/25/2015 [id number] 07/25/2015 Results Test Result Range Complete blood count (CBC) with automated white blood cell (WBC) differential - 02/27/16 04:43 Blood automated leukocyte count 8.34 4.0 -11.0 Erythrocytes 5.17 4.50-5.50 12.0-16.0;g/dL 16.4 13.5-17.0 Hematocrit 46.80 39.00-50.00 Automated erythrocyte mean corpuscular volume 91 80-100 Mean corpuscular hemoglobin (MCH) determination 31.7 26.0-34.0 Automated erythrocyte mean corpuscular hemoglobin concentration measurement ( mass/volume) 35.0 31.0-37.0 Erythrocyte distribution width 14.2 11.8 -15.6 Automated blood platelet count 225 150- 450 Automated blood platelet mean volume measurement 10.2 6.0-9.5 Automated neutrophil percentage 47 51- 67 Lymphocytes/100 leukocytes 41 20-46 Automated monocyte percentage 11 3-11 Eosinophil count auto 1 0-4 Automated basophil percentage 0 0-2 Automated blood neutrophil count 3.9 Blood lymphocytes count (number/volume) 3.5 Automated blood monocyte count 0.9 Blood absolute eosinophil count 0.1 Basophils 0.0 Comprehensive metabolic panel - 02/27/16 04:43 Sodium measurement 100 70-110 Carbon dioxide measurement 29 22-29 Serum or plasma anion gap 23.7 3-15 BLOOD UREA NITROGEN 11 7-18 CREATININE SERUM 0.63 0.8-1.5 Brucella species antibody panel (IgG, IgM) 17 10-20 Estimated glomerular filtration rate (GFR) 162.5 Estimated glomerular filtration rate (GFR) non- 134.3 OSMOLALITY,CALCULATED 291 280-300 CALCIUM 9.8 8.8-10.8 Calculated ionized calcium measurement 3.6 3.8-4.6 BILIRUBIN,TOTAL 0.5 0.1-1.0 Serum or plasma alkaline phosphatase measurement 133 38-126 ASPARTATE AMINO TRANSFERASE 106 15-37 ALANINE AMINOTRANSFERASE 114 30-65 Serum or plasma total protein measurement 9.7 6.4-8.5 Serum or plasma albumin measurement 5.1 3.4-5.0 Serum or plasma albumin/globulin mass ratio 1.108 1.1-1.8 Serum or plasma creatine kinase measurement - 02/27/16 04:43 Serum or plasma creatine kinase measurement 90 55-170 Serum or plasma creatine kinase MB measurement - 02/27/16 04:43 Serum or plasma creatine kinase MB measurement 0.8 0.0-6.0 TROPONIN I* - 02/27/16 04:43 TROPONIN I < 0.012 0.010-0.080 C REACTIVE PROTEIN* - 02/27/16 04:43 C REACTIVE PROTEIN* 2.00 0.0-0.9 ALCOHOL - 02/27/16 04:43 ALCOHOL 233.0 10-80 Serum or plasma creatine kinase measurement - 02/27/16 06:50 Serum or plasma creatine kinase measurement 82 55-170 Serum or plasma creatine kinase MB measurement - 02/27/16 06:50 Serum or plasma creatine kinase MB measurement 0.8 0.0-6.0 TROPONIN I* - 02/27/16 06:50 TROPONIN I < 0.012 0.010-0.080 Complete blood count (CBC) with automated white blood cell (WBC) differential - 08/04/16 16:55 Blood automated leukocyte count 7.61 4.0 -11.0 Erythrocytes 4.44 4.50-5.50 12.0-16.0;g/dL 14.1 13.5-17.0 Hematocrit 39.90 39.00-50.00 Automated erythrocyte mean corpuscular volume 90 80-100 Mean corpuscular hemoglobin (MCH) determination 31.8 26.0-34.0 Automated erythrocyte mean corpuscular hemoglobin concentration measurement ( mass/volume) 35.3 31.0-37.0 Erythrocyte distribution width 13.5 11.8 -15.6 Automated blood platelet count 149 150- 450 Automated blood platelet mean volume measurement 10.7 6.0-9.5 Automated neutrophil percentage 49 51- 67 Lymphocytes/100 leukocytes 40 20-46 Automated monocyte percentage 10 3-11 Eosinophil count auto 1 0-4 Automated basophil percentage 0 0-2 Automated blood neutrophil count 3.7 Blood lymphocytes count (number/volume) 3.1 Automated blood monocyte count 0.7 Blood absolute eosinophil count 0.1 Basophils 0.0 Comprehensive metabolic panel - 08/04/16 16:55 Sodium measurement 105 70-110 CARBON DIOXIDE 27 22-29 Serum or plasma anion gap 19.3 3-15 BLOOD UREA NITROGEN 9 7-18 CREATININE SERUM 0.64 0.8-1.5 Brucella species antibody panel (IgG, IgM) 14 10-20 Estimated glomerular filtration rate (GFR) 159.5 Estimated glomerular filtration rate (GFR) non- 131.9 OSMOLALITY,CALCULATED 280 280-300 CALCIUM 9.4 8.8-10.8 Calculated ionized calcium measurement 4.0 3.8-4.6 BILIRUBIN,TOTAL 0.7 0.1-1.0 Serum or plasma alkaline phosphatase measurement 179 38-126 ASPARTATE AMINO TRANSFERASE 179 15-37 ALANINE AMINOTRANSFERASE 152 30-65 Serum or plasma total protein measurement 7.5 6.4-8.5 Serum or plasma albumin measurement 4.3 3.4-5.0 Serum or plasma albumin/globulin mass ratio 1.343 1.1-1.8 Lipase measurement - 08/04/16 16:55 Lipase measurement 378 23-300 ALCOHOL - 08/04/16 16:55 ALCOHOL 410.0 10-80 TROPONIN I* - 08/04/16 16:55 TROPONIN I < 0.012 0.010-0.080 UA CULTURE IF INDICATED* - 08/04/16 18:30 COLLECTION METHOD CLEAN CATCH Color of urine by auto Yellow Urine appearance determination Clear Urine pH measurement by automated test strip 6.0 5.0 - 8.0 Specific gravity of urine by automated test strip <= 1.005-1.030 Urine protein measurement by test strip (mass/volume) Negative Negative Urine glucose detection by automated test strip Negative Negative Urine erythrocytes count by automated test strip (number/volume) Negative Negative Urine ketones detection by automated test strip Negative Negative Urine nitrite detection by test strip Negative Negative Urine total bilirubin detection by automated test strip Negative Negative Urine urobilinogen measurement by automated test strip (mass/volume) 0.2 0.2-1.0 Urine leukocyte esterase detection by dipstick Negative Negative DRUG SCREEN STAT - 08/04/16 18:30 Urine phencyclidine detection by screening method >25 NG/ml NEGATIVE NEGATIVE Urine benzodiazepines detection by screening method Negative Negative Urine cocaine detection Negative Negative Urine amphetamines detection by screen method > 1000 ng/mL POSITIVE NEGATIVE Urine tetrahydrocannabinol detection by screening method >100 NG/ml Positive Negative Urine opiates detection by screening method Negative Negative Urine barbiturates detection by screening method Negative Negative Drugs of abuse panel NEGATIVE NEGATIVE Ammonia - 08/04/16 21:27 Ammonia < 9.0-30.0 Serum or plasma amylase measurement - 08/04/16 21:27 Serum or plasma amylase measurement 80 25-115 Lipase measurement - 08/04/16 21:27 Lipase measurement 228 23-300 ALCOHOL - 08/04/16 21:27 ALCOHOL 311.0 10-80 Complete blood count (CBC) with automated white blood cell (WBC) differential - 08/05/16 06:00 Blood automated leukocyte count 6.58 4.0 -11.0 Erythrocytes 4.24 4.50-5.50 12.0-16.0;g/dL 13.2 13.5-17.0 Hematocrit 38.50 39.00-50.00 Automated erythrocyte mean corpuscular volume 91 80-100 Mean corpuscular hemoglobin (MCH) determination 31.1 26.0-34.0 Automated erythrocyte mean corpuscular hemoglobin concentration measurement ( mass/volume) 34.3 31.0-37.0 Erythrocyte distribution width 13.9 11.8 -15.6 Automated blood platelet count 149 150- 450 Automated blood platelet mean volume measurement 10.6 6.0-9.5 Automated neutrophil percentage 51 51- 67 Lymphocytes/100 leukocytes 40 20-46 Automated monocyte percentage 7 3-11 Eosinophil count auto 1 0-4 Automated basophil percentage 0 0-2 Automated blood neutrophil count 3.4 Blood lymphocytes count (number/volume) 2.6 Automated blood monocyte count 0.5 Blood absolute eosinophil count 0.1 Basophils 0.0 Comprehensive metabolic panel - 08/05/16 06:00 Sodium measurement 99 70-110 CARBON DIOXIDE 29 22-29 Serum or plasma anion gap 15.4 3-15 BLOOD UREA NITROGEN 7 7-18 CREATININE SERUM 0.60 0.8-1.5 Brucella species antibody panel (IgG, IgM) 12 10-20 Estimated glomerular filtration rate (GFR) 171.9 Estimated glomerular filtration rate (GFR) non- 142.0 OSMOLALITY,CALCULATED 281 280-300 CALCIUM 8.3 8.8-10.8 Calculated ionized calcium measurement 3.7 3.8-4.6 BILIRUBIN,TOTAL 0.6 0.1-1.0 Serum or plasma alkaline phosphatase measurement 109 38-126 ASPARTATE AMINO TRANSFERASE 160 15-37 ALANINE AMINOTRANSFERASE 139 30-65 Serum or plasma total protein measurement 6.9 6.4-8.5 Serum or plasma albumin measurement 3.7 3.4-5.0 Serum or plasma albumin/globulin mass ratio 1.156 1.1-1.8 Lipase measurement - 08/05/16 06:00 Lipase measurement 338 23-300 ALCOHOL - 08/05/16 06:00 ALCOHOL 97.0 10-80 Encounters ACCT No. Visit Date/Time Discharge Status Pt. Type Provider Facility Loc./Unit Complaint [id number] 04/17/2015 13:29:00 2014 23:59:00 DIS Outpatient Dharmesh Luna [facility] med check [id number] 12/17/2014 15:50:00 2014 23:59:00 DIS Outpatient Dharmesh Luna [facility] med recheck [id number] 10/15/2014 13:28:00 Document Registration [id number] 08/13/2014 14:18:00 Document Registration
--- OUTSIDE RECORDS SUMMARY | 2016-10-16 16:33 | XMS REPORT | Continuity of Care Document ---
Author Author [facility] Organization [facility] Address Unknown Phone Unavailable Allergies Active Description Code Type Severity Reaction Onset Reported/Identified Relationship to Patient Clinical Status Yes No Known Drug Allergies [id number] Drug Allergy Unknown N/ A 01/07/2012 Yes No Known Medication Allergies NKMA N/A N/A 08/13/2014 Yes No Known Allergies [id number] Drug Allergy Unknown N/A 08/04/2016 Medications Problems [...] DWIGHT DO, OLGA M Ot 719.45 03/30/2015 DWIGHT DO, OLGA M Ot E888.9 03/30/2015 CHELE [...] JENKINS, DEACON P Ot J80 04/02/2015 RICHARD JENKINS, DEACON P Ot K21.9 04/02/2015 RICHARD JENKINS, [...] DWIGHT DO, OLGA M Ot E888.9 07/25/2015 CHELE JENKINS, CARLITA Mccrary Ot 784.7 07/25/2015 RICHARD JENKINS, DEACON Mccrary Ot 305.90 07/26/2015 BELEN JENKINS, DWAIN Yoo Ot B19.20 07/26/2015 BELEN JENKINS, DWAIN Yoo Ot F10.220 07/26/2015 BELEN JENKINS, DAWIN W Ot F11.20 07/26/2015 BELEN JENKINS, DWAIN [...] JENKINS, LALY Ot W21.11XA 08/25/2015 DANA JENKINS, LLAY Ot Z72.0 09/11/2015 DANA JENKINS, LALY Ot [...] PARKER DO Ot Y92.[address] IN [facility] NON-INSTITUT ( PRIVATE 09/22/2015 KEITH DOZIER KATIUSKA [...] ELAINE MD Ot Y92.[address] IN [facility] NON-INSTITUT ( PRIVATE 01/07/2016 MIGGIANI MD, CARLITA [...] Status Pt. Type Provider Facility Loc./Unit Complaint [id number] 04/17/2015 13:29:00 2014 23:59:00 DIS Outpatient Dharmesh Luna [facility] FM med check [id number] 12/17/2014 15:50:00 2014 23:59:00 DIS Outpatient Dharmesh Luna Via [facility] FM med recheck [id number] 10/15/2014 13:28:00 Document Registration [id number] 08/13/2014 14:18:00 Document Registration
[2016-10-16 17:37] LABS: BASOPHILS % (AUTO) 1 % (0-2); EOSINOPHILS # (AUTO) 0.1 10^3uL; EOSINOPHILS % (AUTO) 1 % (0-4); LYMPHOCYTES # (AUTO) 3.5 X10^3; MEAN CORPUSCULAR HGB CONC 34.2 g/dL (31.0-37.0); MEAN CORPUSCULAR VOLUME 93 FL (80-100); MONOCYTES # (AUTO) 0.7 X10^3; MONOCYTES % (AUTO) 9 % (3-11); NEUTROPHILS # (AUTO) 3.5 X10^3; NEUTROPHILS % (AUTO) 44 % (51-67); PLATELET COUNT 197 10^3uL (150-450); WHITE BLOOD COUNT 7.86 10^3uL (4.0-11.0)
[2016-10-16 17:51] LABS: MEAN CORPUSCULAR HEMOGLOBIN 31.8 PG (26.0-34.0)
[2016-10-16 17:52] LABS: ALBUMIN 4.4 g/dL (3.4-5.0); ANION GAP 20.9 MEQ/L (3-15); CALCULATED IONIZED CALCIUM 3.9 mg/dL (3.8-4.6); TOTAL PROTEIN 8.1 g/dL (6.4-8.5)
[2016-10-16 17:58] LABS: AMPHETAMINE SCREEN, URINE Negative (Negative); CANNABINOID SCREEN, URINE Negative (Negative); METHAMPHETAMINE SCREEN URINE S NEGATIVE (NEGATIVE); OPIATE SCREEN URINE Negative (Negative); PROPOXYPHENE STAT NEGATIVE (NEGATIVE)
[2016-10-16] MEDS ORDERED: LORazepam 2 MG/ML (ATIVAN) 1 ML VIAL IV ONE ×4 (20:10→23:20)
--- NOTE | 2016-10-16 22:00 | NUR ---
SPOKE WITH CHRIS AT [facility] REGARDING POSSIBLE TRANSFER OF PT. A COPY OF THE PT SUMMARY AND T-SHEET WAS FAXED TO THE NUMBER PROVIDED. CHRIS STATES THEY WILL CALL US BACK WITH A DECISION AFTER THE RECORDS ARE REVIEWED.
[2016-10-16] MEDS ORDERED: HYDROcodone/APAP 7.5 MG/325 MG (NORCO) TABLET PO ONE (22:10)
[2016-10-16] MEDS ORDERED: THIAMINE 100 MG/ML (VITAMIN B1) 2 ML VIAL IV ONE (22:50)
--- NOTE | 2016-10-16 23:10 | NUR ---
[facility] RETURNED CALL AT THIS TIME AND STATED THAT THEY ARE CURRENTLY UNABLE TO TAKE ANY MORE PATIENTS. MESSAGE RELAYED TO DR. CORTEZ.
[2016-10-16] MEDS ORDERED: MULTIVITAMIN INJ 10 ML, THIAMINE INJ 100 MG, MAGNESIUM SULFATE 1GM VIAL 2 GM in D5LR 1,... IV SCH (23:51)
[2016-10-16] MEDS ORDERED: ONDANSETRON 2 MG/ML (Z0FRAN) 2 ML VIAL IV PRN (23:55)
[2016-10-16] MEDS ORDERED: LORazepam 2 MG/ML (ATIVAN) 1 ML VIAL IV PRN (23:55)
[2016-10-16] MEDS ORDERED: HALOPERIDOL 5 MG/ML (HALDOL) 1 ML AMP IM PRN (23:55)
--- NOTE | 2016-10-17 00:10 | History and Physical (E) ---
History & Physical CC Alcohol intoxication, expressed wish for detoxification HPI This is a 51 year old male, well known at this facility, who presents again this evening with alcohol intoxification and an expressed desire for detoxification. He was recently admitted to [facility] for inpatient treatment after an acute hospital stay in July. He has been off his psychiatric medications by report for at least a month, as he has been unable to travel and make follow up appointments. Thus, he has relapsed and now once again is drinking alcohol again on a daily basis. He presents this evening with a BAL of 297. He reports tonight the only had "a couple beers." He has not expressed suicidal thoughts to the staff. He has been given ativan and thiamine in the ED. He is now being placed under observation status tonight for further evaluation and treatment. Please note, this patient interaction was performed via telemedicine technology. PMH Schizoaffective D/O HTN GERD Hep C COPD Tobaccoism Polysubstance abuse BRYANT (untreated) PSH Cholecystectomy ALLERGIES: Please see list at end of report. HOME MEDICATIONS: None currently. FH Lung CA Dementia SH Homeless. PPD smoker. Daily alcohol consumption. Also known to use meth and MJ in the past. ROS Review of systems are negative in a 10 point review, except as mentioned above. OBJECTIVE Temp 98 HR 81 RR 20 BP 132/83 96% on RA GEN: Awake, alert, oriented, NAD HEENT: EOMI. CV: RRR S1 S2 normal with no murmur LUNGS: CTA B ABD: Soft, NT/ND with normal bowel sounds. EXTR: No edema INTEG: No rash. NEURO: No focal motor neuro deficit. Weight: 81.6 kg LABS No significant electrolyte abnormalities CBC unremarkable AST 177, ALT 134, AP 140, TBili 0.5 ASSESSMENT 1. Acute alcohol intoxication with expressed desire for detoxification 2. Alcohol dependence 3. Mild clinical dehydration 4. Transaminitis secondary chronic alcoholism 5. Schizoaffective disorder 6. GERD 7. Hep C 8. Tobaccoism PLAN Patient will be placed under observation status tonight to the medical floor. The facility alcohol withdrawal protocol has been implemented. Benzodiazepine administration will be on a needs driven protocol this evening based on nursing withdrawal assessment. Thiamine has already been administered. IV fluids per facility withdrawal protocol. Follow up labs in AM. Social work consult requested as well, as he expresses a desire to return to inpatient treatment at [facility]. DVT prophylaxis: SCDs this evening Allergies/Home Medications Allergies: Coded Allergies: No Known Allergies (Verified Allergy, Unknown, 10/16/16) Reported Home Medications No Active Prescriptions or Reported Meds Copies to: Additional Provider: JASON HENRY DO End of Report . FRANDY YOUNGBLOOD MD Oct 17, 2016 00:10 Copies to: End of Report . FRANDY YOUNGBLOOD MD Oct 17, 2016 00:10
--- NOTE | 2016-10-17 00:15 | NUR ---
Pt. arrived on the Med Surg floor to room 319 at 0014; accompanied by ER/RN Tiffanie. Pt. is alert; cooperative with transfer to weigh chair; requesting "shots; and oxygen-I wear it at night at home". Vital signs taken; admission process continues.
[2016-10-17 00:23] VITALS: BP 137/94
[2016-10-17 00:25] VITALS: BP 137/94
--- NOTE | 2016-10-17 00:50 | NUR ---
Dr. Woods interviewing pt. via [facility].
[2016-10-17] MEDS ORDERED: D5LR 1,000 ML IV ONE (00:56)
[2016-10-17] MEDS ORDERED: MAGNESIUM SULFATE 1 GM/2 ML VIAL ONE (00:57)
[2016-10-17] MEDS ORDERED: MULTIVITAMINS (MVI) 2 5 ML VIALS IV ONE (00:57)
[2016-10-17] MEDS ORDERED: THIAMINE 100 MG/ML (VITAMIN B1) 2 ML VIAL ONE (00:57)
--- NOTE | 2016-10-17 01:00 | NUR ---
Pt. requesting chicken noodle soup/crackers; provided.
[2016-10-17] MEDS: LORazepam 2 MG/ML (ATIVAN) 1 ML VIAL IV PRN ×5 (01:07→14:39)
--- NOTE | 2016-10-17 01:10 | NUR ---
Detox IVF infusing without difficulty at left forearm site; Ativan 2 mg IV given for anxiety/tremors. O2 applied at 2L via NC for HS. Pt. watching tv; eating soup; calling friend on the hospital phone. Call light and H2O within reach.
[2016-10-17] MEDS: HYDROcodone/APAP 5 MG/325 MG (NORCO) TAB PO PRN ×2 (04:00→10:39)
--- NOTE | 2016-10-17 04:01 | NUR ---
Switzer 5 (2) PO given for neck/back pain rated "8". Ativan 2 mg IV given for anxiety/tremors. Pt. has rested quietly for a short interval; O2 applied at 2L/HS. SCD's tolerated well. Call light and H2O within reach.
[2016-10-17 04:10] VITALS: BP 139/91
[2016-10-17 05:39] LABS: MEAN CORPUSCULAR HEMOGLOBIN 30.9 PG (26.0-34.0); MEAN CORPUSCULAR HGB CONC 33.3 g/dL (31.0-37.0); MEAN CORPUSCULAR VOLUME 93 FL (80-100); MEAN PLATELET VOLUME 10.1 FL (6.0-9.5); PLATELET COUNT 189 10^3uL (150-450); WHITE BLOOD COUNT 5.08 10^3uL (4.0-11.0)
[2016-10-17 06:25] LABS: MONOCYTES # 0.4 #; MONOCYTES % 7 % (3-11); SEGMENTED NEUTROPHILS % 42 % (51-67)
[2016-10-17 06:26] LABS: LYMPHOCYTES # 2.6 #; TOTAL CELLS COUNTED 105
--- NOTE | 2016-10-17 06:35 | NUR ---
Pt. has rested in short intervals; O2 at 2L for HS; Detox IVF infusing without difficulty at left forearm. Pt. has peeled off telemetry patches several times; urinated in trash can; stretched IV tubing to the limit. [place] applied to IV site for security. Pt. cooperative upon direct. Ativan given for anxiety/tremors; [place] given for pain. Pt. reports pain to be located in neck and back area. H2O and call light within reach. Pt. has denied nausea.
--- NOTE | 2016-10-17 07:14 | NUR ---
SPO2 98% on RA at this time.
[2016-10-17 07:26] VITALS: BP 121/65
[2016-10-17 07:40] LABS: ANION GAP 15.5 MEQ/L (3-15); MAGNESIUM* 1.6 mg/dL (1.6-2.3)
[2016-10-17 07:43] LABS: RBC MORPH SEE REFERENCE (NORMAL)
--- NOTE | 2016-10-17 08:13 | Diagnostic Imaging Report ---
PROCEDURE: CT head and CT cervical spine without contrast. TECHNIQUE: Multiple contiguous axial images were obtained through the brain and cervical spine without the use of intravenous contrast. Sagittal and coronal reformations through the cervical spine were then performed. INDICATION: Trauma, pain. FINDINGS: CT head: There is no intracranial hemorrhage, hydrocephalus, edema, mass, mass effect, or hemo-sinus. Old deformities to the nasal bones stable from priors. No acute pathology. CT cervical spine: Reconstruction views reveal normal body heights aligned anatomically. No cervical fracture or dislocation. No severe stenosis. There is no paravertebral mass, hemorrhage, or fluid collection. There are carotid vascular calcifications at the bulbs and bifurcations. IMPRESSION: CT head: No hemorrhage or fracture deformity, no acute pathology. CT cervical spine: No fracture or traumatic malalignment. Dictated by: Dictated on workstation # [id number]
--- NOTE | 2016-10-17 08:13 | Diagnostic Imaging Report ---
PROCEDURE: CT chest, abdomen, and pelvis with contrast. TECHNIQUE: Multiple contiguous axial images were obtained through the chest, abdomen, and pelvis after the administration of intravenous contrast. INDICATION: Two days ago sustained trauma. No priors CHEST: There is no evidence for lung contusion, hemothorax or pneumothorax. No lung mass or findings of aspiration or other etiology for infiltrate. The thoracic aorta is patent and intact. There is no mediastinal, pleural or pericardial hemorrhage. The subtle healed buckle deformities of the right fifth, eighth and ninth ribs which appeared old. No evidence for lucent or unhealed fracture. No acute soft tissue or osseous chest wall pathology. Reconstruction views revealed thoracolumbar statures to be normal and aligned anatomically. The sternum and manubrium were intact. No retrosternal hematoma. No thoracic lymphadenopathy. There is a tiny hiatal hernia. Abdomen pelvis: Hepatic steatosis and previous cholecystectomy noted. No evidence for hepatosplenic laceration. There is no free fluid or findings of hemoperitoneum. There is noninflamed diverticulosis of the sigmoid. Kidneys unobstructed and nonacute. There is no extravasation of contrast from the intact urinary bladder on the delayed acquisitions. There is no free air or pneumatosis. No rectus sheath hematoma or full-thickness fascial abdominal wall defect. The osseous structures of the abdomen and pelvis revealed no acute finding. No mass, aneurysm or adenopathy. IMPRESSION: Chest: No acute posttraumatic sequelae. No mass, effusion or infiltrate. Abdomen: Fatty liver without hemoperitoneum, solid or hollow visceral injury. Small hiatal hernia noted. Pelvis: No free fluid, noninflamed diverticulosis. No fracture or acute/posttraumatic sequelae identified. Dictated by: Dictated on workstation # [id number]
--- NOTE | 2016-10-17 08:16 | Diagnostic Imaging Report ---
PROCEDURE: CT maxillofacial without contrast. TECHNIQUE: Multiple contiguous axial images were obtained through the facial bones without the use of intravenous contrast. INDICATION: Injury. Exam compared with study 02/27/2016. FINDINGS: Old comminuted fracture deformities of the bilateral nasal bones unchanged from the prior without adjacent soft tissue swelling. Chronic nasal septal deviation and spurring is unchanged. Old irregularities to the anterior maxillary spine are unchanged. There is an area of apical erosions and lucencies in the alveolus right greater than left owing to a periodontal disease. This is an unchanged finding. The pterygoid plates were intact. The zygomatic arches intact. Mandible intact. The orbits intact. No post-septal or retrobulbar hematoma. Slight membrane thickening and left greater than right maxillary sinuses chronic. There is no hemo-sinus. There is old deformity to the medial right orbit, this is chronic. No adjacent hemorrhage. IMPRESSION: Old nasal bone anterior maxillary spine and medial right orbital deformities chronic unchanged from prior. No hemo-sinus or acute posttraumatic sequelae. Periapical erosions in the alveolus on a periodontal basis chronic. Dictated by: Dictated on workstation # [id number]
[2016-10-17] MEDS ORDERED: NICOTINE 21 MG (NICODERM) PATCH TD SCH (09:00)
[2016-10-17] MEDS ORDERED: NS FLUSH 3 ML PRN IV (10:00)
--- NOTE | 2016-10-17 10:30 | NUR ---
Patient awakens easily for cares. When staff are not in the room he sleeps most of the time. He has been able to void and eat 100% of a regular breakfast.
[2016-10-17] MEDS ORDERED: SODIUM CHLORIDE FLUSH 10 ML ONE (10:37)
[2016-10-17] MEDS: NS FLUSH 10 ML PRN IV ×3 (10:45→14:39)
[2016-10-17 11:35] VITALS: BP 135/78
--- NOTE | 2016-10-17 12:54 | Discharge Summary (E FT) ---
Discharge Summary (E FT) Admit Date Oct 16, 2016 at 23:42 Discharge Date September Admitting Provider Nikos Brown MD Primary Care Provider pt. says he has none Attending Provider Nikos Brown MD Consulting Provider Hospital Course Summary This 51 year old patient was admitted to the floor to observation status.He had a blood alcohol of 332.He is admitted here frequently almost always with a high level of Ethanol.He was hydrated and was given a so called banana bag and he did quite well. He had no withdrawal signs or symptoms.This am his blood recheck showed a blood alcohol level of less than ten.HE always makes noise about wanting to stop drinking alcohol ,but he never follows through on those assertions. Discharge Disposition Discharged to home. Medication Profile: No Active Prescriptions or Reported Meds Follow up Instructions I did speak to this patient quite awhile about getting into a program seriously to help him stop drinking ethanol once and for all. Copies to: End of Report . JASON HENRY DO Oct 17, 2016 12:54
--- NOTE | 2016-10-17 14:55 | NUR ---
Gave the patient discharge instructions. Educated him on the importance of establishing a relationship with a PCP and follow up with hiram swanson. Patient demonstrated verbal understanding.
--- NOTE | 2016-10-17 15:15 | NUR ---
Patient dismissed ambulatory accompanied by a GLASS WASHER [employer] CARRIER.
[2016-10-18] MEDS ORDERED: NS FLUSH 3 ML DAILY IV SCH (09:00)
[2016-10-19] MEDS ORDERED: MULTIVITAMIN W/MINERALS (THERAGRAN M) TABLET PO SCH (08:00)
[2016-10-19] MEDS ORDERED: THIAMINE 100 MG (VITAMIN B-1) TAB PO SCH (08:00)
== END 2016-10-17 15:15 | disposition home or self-care (01) ==
LOC: ED 16:26 → MED/SURG 23:42
PROVIDERS: ADMIT Hospitalist; ATTEND Hospitalist
DX: F10.220 Alcohol dependence with intoxication, uncomplicated (principal); E86.0 Dehydration; R74.0 Nonspecific elevation of levels of transaminase and lactic acid dehydrogenase [LDH]; Y90.8 Blood alcohol level of 240 mg/100 ml or more; F25.9 Schizoaffective disorder, unspecified; I10 Essential (primary) hypertension; B19.20 Unspecified viral hepatitis C without hepatic coma; J44.9 Chronic obstructive pulmonary disease, unspecified; K21.9 Gastro-esophageal reflux disease without esophagitis; F17.210 Nicotine dependence, cigarettes, uncomplicated; Z59.0 Homelessness
CPT/HCPCS: 36415; 70450; 70486; 71260; 72125; 74177; 80048; 80053; 80307; 82274; 83735; 85025; 96365; 96366; 96375; 96376; 99283; A9270; G0378; G0480; J2060; J3411; J3475; Q9967; 80320; 99218

== ENCOUNTER 2016-10-27 01:45 | Emergency (ER) | payer MEDICARE, MEDICAID ==
[~2016-10-27] VITALS: Ht 170.2 cm; Wt 72.3 kg
[~2016-10-27 01:45] MED LIST changes: -LORA-405 PO
[2016-10-27] MEDS ORDERED: SODIUM CHLORIDE FLUSH 3 ML SYR IV PRN (01:50)
[2016-10-27] MEDS ORDERED: SODIUM CHLORIDE FLUSH 10 ML SYR IV PRN (01:50)
--- OUTSIDE RECORDS SUMMARY | 2016-10-27 01:54 | XMS REPORT | Continuity of Care Document ---
Author Author [facility] Organization [facility] Address Unknown Phone Unavailable Allergies Active Description Code Type Severity Reaction Onset Reported/Identified Relationship to Patient Clinical Status Yes No Known Drug Allergies [id number] Drug Allergy Unknown N/ A 01/07/2012 Yes No Known Medication Allergies NKMA N/A N/A 08/13/2014 Yes No Known Allergies [id number] Drug Allergy Unknown N/A 10/16/2016 Medications Problems Date Dx Coded Attending Type [...] AMRIK H Ot 244.9 05/31/2014 JOSE JENKINS, AMIRK H Ot 295.70 05/31/2014 JOSE JENKINS, AMRIK [...] JENKINS, AMRIK H Ot 530.81 05/31/2014 JOSE JNEKINS, AMRIK H Ot 571.1 05/31/2014 JOSE JENKINS, [...] DEACON P Ot 303.00 09/27/2014 RICHARD JENKINS, DEACNO P Ot 305.1 09/27/2014 RICHARD JENKINS, DEACON [...] DWIGHT DO, OLGA Hernandez Ot 496 07/25/2015 DWIGTH DO, OLGA M Ot 719.45 07/25/2015 DWIGHT [...] PARKER DO Ot Y92.[address] IN [facility] NON-INSTITUT ( PRIVATE 09/22/2015 KEITH DOZIER KATIUSKA [...] ELAINE MD Ot Y92.[address] IN [facility] NON-INSTITUT ( PRIVATE 01/07/2016 MIGGIANI MD, CARLITA [...] F10.129 ALCOHOL ABUSE WITH INTOXICATION, UNSPECI 03/03/2016 ISMÓN VELASQUEZ MD, Ot F17.200 NICOTINE DEPENDENCE, UNSPECIFIED, [...] ALCOHOL - 08/05/16 06:00 ALCOHOL 97.0 10-80 DRUG SCREEN STAT - 10/16/16 17:08 Urine phencyclidine detection by screening method >25 NG/ml NEGATIVE NEGATIVE Urine benzodiazepines detection by screening method Negative Negative Urine cocaine detection Negative Negative Urine amphetamines detection by screen method > 1000 ng/mL NEGATIVE NEGATIVE Urine tetrahydrocannabinol detection by screening method >100 NG/ml Negative Negative Urine opiates detection by screening method Negative Negative Urine barbiturates detection by screening method Negative Negative Drugs of abuse panel NEGATIVE NEGATIVE Complete blood count (CBC) with automated white blood cell (WBC) differential - 10/16/16 17:26 Blood automated leukocyte count 7.86 4.0 -11.0 Erythrocytes 5.00 4.50-5.50 12.0-16.0;g/dL 15.9 13.5-17.0 Hematocrit 46.50 39.00-50.00 Automated erythrocyte mean corpuscular volume 93 80-100 Mean corpuscular hemoglobin (MCH) determination 31.8 26.0-34.0 Automated erythrocyte mean corpuscular hemoglobin concentration measurement ( mass/volume) 34.2 31.0-37.0 Erythrocyte distribution width 14.0 11.8 -15.6 Automated blood platelet count 197 150- 450 Automated blood platelet mean volume measurement 10.0 6.0-9.5 Automated neutrophil percentage 44 51- 67 Lymphocytes/100 leukocytes 45 20-46 Automated monocyte percentage 9 3-11 Eosinophil count auto 1 0-4 Automated basophil percentage 1 0-2 Automated blood neutrophil count 3.5 Blood lymphocytes count (number/volume) 3.5 Automated blood monocyte count 0.7 Blood absolute eosinophil count 0.1 Basophils 0.0 Comprehensive metabolic panel - 10/16/16 17:26 Sodium measurement 104 70-110 CARBON DIOXIDE 26 22-29 Serum or plasma anion gap 20.9 3-15 BLOOD UREA NITROGEN 7 7-18 CREATININE SERUM 0.60 0.8-1.5 Brucella species antibody panel (IgG, IgM) 12 10-20 Estimated glomerular filtration rate (GFR) 171.9 Estimated glomerular filtration rate (GFR) non- 142.0 OSMOLALITY,CALCULATED 282 280-300 CALCIUM 9.6 8.8-10.8 Calculated ionized calcium measurement 3.9 3.8-4.6 BILIRUBIN,TOTAL 0.5 0.1-1.0 Serum or plasma alkaline phosphatase measurement 140 38-126 ASPARTATE AMINO TRANSFERASE 177 15-37 ALANINE AMINOTRANSFERASE 134 30-65 Serum or plasma total protein measurement 8.1 6.4-8.5 Serum or plasma albumin measurement 4.4 3.4-5.0 Serum or plasma albumin/globulin mass ratio 1.189 1.1-1.8 ALCOHOL - 10/16/16 17:26 ALCOHOL 297.0 10-80 OCCULT BLOOD--ICT 1 - 10/16/16 18:30 OCCULT BLOOD--ICT 1 NEGATIVE NEGATIVE Complete blood count (CBC) with automated white blood cell (WBC) differential - 10/17/16 05:15 Blood automated leukocyte count 5.08 4.0 -11.0 Erythrocytes 4.31 4.50-5.50 12.0-16.0;g/dL 13.3 13.5-17.0 Hematocrit 39.90 39.00-50.00 Automated erythrocyte mean corpuscular volume 93 80-100 Mean corpuscular hemoglobin (MCH) determination 30.9 26.0-34.0 Automated erythrocyte mean corpuscular hemoglobin concentration measurement ( mass/volume) 33.3 31.0-37.0 Erythrocyte distribution width 13.9 11.8 -15.6 Automated blood platelet count 189 150- 450 Automated blood platelet mean volume measurement 10.1 6.0-9.5 Complete blood count, platelets with manual differential - 10/17/16 05:15 Total cell count 105 Blood segmented neutrophils percentage 42 51-67 LYMPHOCYTES % 51 20-46 Automated monocyte percentage 7 3-11 NEUTROPHILS(SEG) 2.1 Blood lymphocytes manual count (number/volume) 2.6 Automated blood monocyte count 0.4 Lymphocytes.variant 5 <1 Erythrocyte morphology assessment SEE REFERENCE NORMAL Blood schistocytes detection by light microscopy BASIC METABOLIC PANEL* - 10/17/16 05:15 Sodium measurement 109 70-110 CARBON DIOXIDE 27 22-29 Serum or plasma anion gap 15.5 3-15 BLOOD UREA NITROGEN 8 7-18 CREATININE SERUM 0.63 0.8-1.5 Brucella species antibody panel (IgG, IgM) 13 10-20 Estimated glomerular filtration rate (GFR) 162.5 Estimated glomerular filtration rate (GFR) non- 134.3 CALCIUM 9.1 8.8-10.8 Magnesium measurement - 10/17/16 05:15 Magnesium measurement 1.6 1.6-2.3 ALCOHOL - 10/17/16 11:50 ALCOHOL < 10.0 10-80 Encounters ACCT No. Visit Date/Time Discharge Status Pt. Type Provider Facility Loc./Unit Complaint [id number] 04/17/2015 13:29:00 2014 23:59:00 DIS Outpatient Dharmesh Luna [facility] med check [id number] 12/17/2014 15:50:00 2014 23:59:00 DIS Outpatient Dharmesh Luna [facility] med recheck [id number] 10/15/2014 13:28:00 Document Registration [id number] 08/13/2014 14:18:00 Document Registration
[2016-10-27] MEDS ORDERED: diphenhydrAMINE 50 MG/ML INJ (BENADRYL) IV ONE (02:10)
[2016-10-27] MEDS ORDERED: HALOPERIDOL 5 MG/ML (HALDOL) 1 ML AMP IV ONE (02:10)
[2016-10-27 02:14] LABS: MEAN CORPUSCULAR HEMOGLOBIN 31.2 PG (26.0-34.0); MEAN CORPUSCULAR HGB CONC 33.8 g/dL (31.0-37.0); MEAN CORPUSCULAR VOLUME 92 FL (80-100); MEAN PLATELET VOLUME 10.6 FL (6.0-9.5); PLATELET COUNT 255 10^3uL (150-450); WHITE BLOOD COUNT 8.24 10^3uL (4.0-11.0)
[2016-10-27 02:29] LABS: ALBUMIN 4.8 g/dL (3.4-5.0); ALKALINE PHOSPHATASE 113 U/L (38-126); BUN/CREATININE RATIO 12 (10-20); CALCULATED IONIZED CALCIUM 3.6 mg/dL (3.8-4.6); TOTAL PROTEIN 8.9 g/dL (6.4-8.5)
--- NOTE | 2016-10-27 02:38 | NUR ---
Pt given a urinal per his request to be able to void, offer pt a sheet or blanket and he states "NO" "I'm already burning up".
--- NOTE | 2016-10-27 02:42 | NUR ---
pt does state that the medication he just received has not done any good. RN explains to pt that DR. Curiel will be notified in about 15 minutes more that the medication has not worked, this way it gives the medication a chance to work before calling the
[2016-10-27 02:43] LABS: BAND NEUTROPHILS % 0 % (0-6); EOSINOPHILS % 0 % (0-4); MONOCYTES # 0.6 #; MONOCYTES % 7 % (3-11); SEGMENTED NEUTROPHILS % 32 % (51-67); TOTAL CELLS COUNTED 100
[2016-10-27 02:44] LABS: RBC MORPH NORMAL (NORMAL)
[2016-10-27] MEDS ORDERED: LORazepam 2 MG/ML (ATIVAN) 1 ML VIAL IV ONE ×3 (03:15→09:00)
--- NOTE | 2016-10-27 04:00 | NUR ---
Pt is resting at this time, resp easy and non labored
--- NOTE | 2016-10-27 04:30 | NUR ---
Pt resting at this time
--- NOTE | 2016-10-27 05:00 | NUR ---
Pt continues to rest
--- NOTE | 2016-10-27 05:59 | NUR ---
Pt awoke and asked for the urinal wich was provided to him, pt has no other needs at this time.
[2016-10-27 06:15] LABS: BILIRUBIN,URINE Negative (Negative); CLARITY,URINE Clear; COLOR,URINE Yellow; GLUCOSE, URINE (UA) Negative (Negative); LEUKOCYTE ESTERASE ,URINE Negative (Negative); PH,URINE 5.5 (5.0 - 8.0); UROBILINOGEN,URINE 0.2 mg/dL (0.2-1.0)
[2016-10-27 06:26] LABS: AMPHETAMINE SCREEN, URINE Negative (Negative); CANNABINOID SCREEN, URINE Negative (Negative); METHAMPHETAMINE SCREEN URINE S NEGATIVE (NEGATIVE); OPIATE SCREEN URINE Negative (Negative); PROPOXYPHENE STAT NEGATIVE (NEGATIVE)
--- NOTE | 2016-10-27 06:50 | NUR ---
Report given to Daniela for continued care of pt
--- NOTE | 2016-10-27 06:53 | NUR ---
THIS RN ROUNDS ON PT & ASSUMES CARE. PT STATES HE "NEEDS A SHOT". DR VELASQUEZ NOTIFIED. CL
[2016-10-27] MEDS ORDERED: KETOROLAC 30 MG/ML (TORADOL) 1 ML VIAL IV ONE (07:35)
--- NOTE | 2016-10-27 08:13 | Diagnostic Imaging Report ---
EXAM: CHEST 1 VIEW, AP/PA ONLY* INDICATION: Chest pain. COMPARISON: Chest radiograph 09/19/2015. CT chest, abdomen, and pelvis with IV contrast 10/16/2016. FINDINGS: Normal heart size and pulmonary vascularity. Subcentimeter nodular opacity in the right upper lobe is new since the prior exam. There is no corresponding finding on the chest CT from 2 weeks ago. No dense consolidation, pleural effusion, or pneumothorax. No acute osseous findings. Chronic left rib fracture. IMPRESSION: New nodular opacity in the right upper lung is likely artifactual, possibly a small infiltrate, given there was no corresponding finding on the chest CT from 2 weeks ago. No other new cardiopulmonary findings. Findings discussed with Dr. Guerline Hurtado by Dr. Hay at 8:45 am on 10/27/2016. Dictated by: Dictated on workstation # [id number]
--- NOTE | 2016-10-27 08:19 | NUR ---
pt sleeping on lt side. cl
[2016-10-27] MEDS ORDERED: LORA-405 PO (09:11)
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
[2016-10-27 09:35] VITALS: BP 131/85
== END 2016-10-27 09:31 | disposition home or self-care (01) ==
LOC: EDUNIT# 01:45 → ED 01:46
DX: F10.239 Alcohol dependence with withdrawal, unspecified (principal); F10.229 Alcohol dependence with intoxication, unspecified; F15.10 Other stimulant abuse, uncomplicated; Y90.6 Blood alcohol level of 120-199 mg/100 ml; R07.89 Other chest pain; M79.1 Myalgia
CPT/HCPCS: 36415; 71010; 80053; 80307; 81003; 84484; 85025; 85379; 85610; 93005; 96361; 96374; 96375; 96376; 99285; G0480; J1200; J1630; J1885; J2060; J7030; 80320; 93010

== ENCOUNTER → 2016-10-27 | Outpatient (CLI) | payer MEDICARE, MEDICAID ==
[~2016-10-27] MED LIST changes: +LORA-405 PO
== END ==
LOC: EMS 01:38
PROVIDERS: ATTEND Emergency Medicine
DX: R07.1 Chest pain on breathing (principal); F10.10 Alcohol abuse, uncomplicated

== ENCOUNTER 2016-10-31 23:06 | Observation (INO) | payer MEDICARE, MEDICAID ==
[~2016-10-31] VITALS: Ht 175.3 cm; Wt 78.7 kg
[~2016-10-31 23:06] MED LIST changes: +LORA-405 PO
--- OUTSIDE RECORDS SUMMARY | 2016-10-31 23:13 | XMS REPORT | Continuity of Care Document ---
Author Author [facility] Organization [facility] Address Unknown Phone Unavailable Allergies Active Description Code Type Severity Reaction Onset Reported/Identified Relationship to Patient Clinical Status Yes No Known Drug Allergies [id number] Drug Allergy Unknown N/ A 01/07/2012 Yes No Known Medication Allergies NKMA N/A N/A 08/13/2014 Yes No Known Allergies [id number] Drug Allergy Unknown N/A 10/16/2016 Medications Problems [...] OLGA Hernandez Ot E885.9 07/20/2014 DWIGHT DO, OGLA Hernandez Ot 496 07/20/2014 DWIGHT DO, OLGA [...] RICHARD JENKINS, DEACON P Ot J80 04/02/2015 RICHRAD JENKINS, DEACNO P Ot K21.9 04/02/2015 RICHARD JENKINS, DEACON [...] RICHARD JENKINS, DEACON P Ot Z72.0 08/13/2015 EAV JENKINS, SIMÓN W Ot B19.20 08/13/2015 EVA [...] SIMÓN Yoo Ot Y08.02XA 08/14/2015 EVA JENKINS, SIMNÓ Yoo Ot Y92.029 08/23/2015 EVA JENKINS, SIMÓN [...] PARKER DO Ot Y92.[address] IN [facility] NON-INSTITUT ( PRIVATE 09/22/2015 KEITH DOZIER KATIUSKA [...] ELAINE MD Ot Y92.[address] IN [facility] NON-INSTITUT ( PRIVATE 01/07/2016 MIGGIANI MD, CARLITA [...] Ot R45.851 SUICIDAL IDEATIONS 08/11/2016 DEACON RAMOS MD Ot F20.9 SCHIZOPHRENIA, UNSPECIFIED 08/11/2016 DEACON RAMOS MD Ot R45.851 SUICIDAL IDEATIONS 08/20/2016 DEACON RAMOS MD Ot F20.9 SCHIZOPHRENIA, UNSPECIFIED 08/20/2016 DEACON RAMOS MD Ot R45.851 SUICIDAL IDEATIONS 08/28/2016 DEACON RAMOS MD Ot F20.9 SCHIZOPHRENIA, UNSPECIFIED 08/28/2016 DEACON RAMOS MD Ot R45.851 SUICIDAL IDEATIONS 10/17/2016 FRANDY YOUNGBLOOD MD Ot B19.20 UNSPECIFIED VIRAL HEPATITIS C WITHOUT HE 10/17/2016 FRANDY YOUNGBLOOD MD Ot E86.0 DEHYDRATION 10/17/2016 FRANDY YOUNGBLOOD MD Ot F10.220 ALCOHOL DEPENDENCE WITH INTOXICATION, UN 10/17/2016 FRANDY YOUNGBLOOD MD Ot F17.210 NICOTINE DEPENDENCE, CIGARETTES, UNCOMPL 10/17/2016 FRANDY YOUNGBLOOD MD Ot F25.9 SCHIZOAFFECTIVE DISORDER, UNSPECIFIED 10/17/2016 FRANDY YOUNGBLOOD MD Ot I10 ESSENTIAL (PRIMARY) HYPERTENSION 10/17/2016 FRANDY YOUNGBLOOD MD Ot J44.9 CHRONIC OBSTRUCTIVE PULMONARY DISEASE, U 10/17/2016 FRANDY YOUNGBLOOD MD Ot K21.9 GASTRO-ESOPHAGEAL REFLUX DISEASE WITHOUT 10/17/2016 FRANDY YOUNGBLOOD MD Ot R74.0 NONSPEC ELEV OF LEVELS OF TRANSAMNS LA 10/17/2016 FRANDY YOUNGBLOOD MD Ot Y90.8 BLOOD ALCOHOL LEVEL OF 240 MG/100 ML OR 10/17/2016 FRANDY YOUNGBLOOD MD Ot Z59.0 HOMELESSNESS Procedures Code Description Performed By Performed On [...] - 10/17/16 11:50 ALCOHOL < 10.0 10-80 Complete blood count (CBC) with automated white blood cell (WBC) differential - 10/27/16 01:30 Blood automated leukocyte count 8.24 4.0 -11.0 Erythrocytes 5.04 4.50-5.50 12.0-16.0;g/dL 15.7 13.5-17.0 Hematocrit 46.40 39.00-50.00 Automated erythrocyte mean corpuscular volume 92 80-100 Mean corpuscular hemoglobin (MCH) determination 31.2 26.0-34.0 Automated erythrocyte mean corpuscular hemoglobin concentration measurement ( mass/volume) 33.8 31.0-37.0 Erythrocyte distribution width 13.4 11.8 -15.6 Automated blood platelet count 255 150- 450 Automated blood platelet mean volume measurement 10.6 6.0-9.5 ALCOHOL - 10/27/16 01:30 ALCOHOL 185.0 10-80 D-dimer test - 10/27/16 01:30 D-dimer test 422 0-500 Prothrombin time (PT) with international normalized ratio (INR) - 10/27/16 01: 30 Prothrombin time (PT) in platelet poor plasma by coagulation assay 10.8 10.0-12.5 INR 1.0 0.8-1.4 Complete blood count, platelets with manual differential - 10/27/16 01:30 Total cell count 100 Blood segmented neutrophils percentage 32 51-67 Blood band neutrophil count as percentage of total leukocytes 0 0-6 LYMPHOCYTES % 61 20-46 Automated monocyte percentage 7 3-11 Eosinophil count auto 0 0-4 Basophils 0 0-2 Manual blood metamyelocytes/100 leukocytes 0 0-1 NEUTROPHILS(SEG) 2.6 NEUTROPHILS # BANDS 0.0 Blood lymphocytes manual count (number/volume) 5.0 Automated blood monocyte count 0.6 Blood absolute eosinophil count 0.0 Basophils 0.0 Erythrocyte morphology assessment NORMAL NORMAL Comprehensive metabolic panel - 10/27/16 01:30 Sodium measurement 94 70-110 CARBON DIOXIDE 29 22-29 Serum or plasma anion gap 20.0 3-15 BLOOD UREA NITROGEN 12 7-18 CREATININE SERUM 0.98 0.8-1.5 Brucella species antibody panel (IgG, IgM) 12 10-20 Estimated glomerular filtration rate (GFR) 97.6 Estimated glomerular filtration rate (GFR) non- 80.6 OSMOLALITY,CALCULATED 280 280-300 CALCIUM 9.5 8.8-10.8 Calculated ionized calcium measurement 3.6 3.8-4.6 BILIRUBIN,TOTAL 0.4 0.1-1.0 Serum or plasma alkaline phosphatase measurement 113 38-126 ASPARTATE AMINO TRANSFERASE 109 15-37 ALANINE AMINOTRANSFERASE 113 30-65 Serum or plasma total protein measurement 8.9 6.4-8.5 Serum or plasma albumin measurement 4.8 3.4-5.0 Serum or plasma albumin/globulin mass ratio 1.170 1.1-1.8 TROPONIN I* - 10/27/16 01:30 TROPONIN I < 0.012 0.010-0.080 UA CULTURE IF INDICATED* - 10/27/16 02:40 COLLECTION METHOD CLEAN CATCH Color of urine by auto Yellow Urine appearance determination Clear Urine pH measurement by automated test strip 5.5 5.0 - 8.0 Specific gravity of urine by automated test strip 1.010 1.005-1.030 Urine protein measurement by test strip [...] dipstick Negative Negative DRUG SCREEN STAT - 10/27/16 02:40 Urine phencyclidine detection by screening method >25 [...] Negative Drugs of abuse panel NEGATIVE NEGATIVE Encounters ACCT No. Visit Date/Time Discharge Status Pt. Type Provider Facility Loc./Unit Complaint [id number] 04/17/2015 13:29:00 2014 23:59:00 DIS Outpatient Dharmesh Luna [facility] [place] med check [id number] 12/17/2014 15:50:00 2014 23:59:00 DIS Outpatient Dharmesh Luna [facility] [place] med recheck [id number] 10/15/2014 13:28:00 Document Registration [id number] 08/13/2014 14:18:00 Document Registration
--- OUTSIDE RECORDS SUMMARY | 2016-10-31 23:16 | XMS REPORT | Continuity of Care Document ---
Author Author [facility] Organization [facility] Address Unknown Phone Unavailable Allergies Active Description Code Type Severity Reaction Onset Reported/Identified Relationship to Patient Clinical Status Yes No Known Drug Allergies [id number] Drug Allergy Unknown N/ A 01/07/2012 Yes No Known Medication Allergies NKMA N/A N/A 08/13/2014 Yes No Known Allergies [id number] Drug Allergy Unknown N/A 10/16/2016 Medications Problems [...] RICHARD JENKINS, DEACON P Ot 719.41 07/11/2014 OGLA QUINTANILLA DO Ot 719.41 07/11/2014 DWIGHT DO, [...] RICHARD JENKINS, DEACON P Ot E849.7 09/27/2014 RIHCARD JENKINS, DEACON P Ot E888.9 10/18/2014 CHELE [...] JENKINS, DWAIN W Ot J44.9 04/15/2015 BELEN JENKNIS, DWAIN W Ot Y90.8 05/03/2015 Ot 786.09 [...] 09/13/2015 SIMÓN VELASQUEZ MD Ot R10.84 09/13/2015 SIÓMN VELASQUEZ MD Ot R55 09/19/2015 KWABENA VAUGHN [...] PARKER DO Ot Y92.[address] IN [facility] NON-INSTITUT ( PRIVATE 09/22/2015 KEITH DOZIER [...] ELAINE MD Ot Y92.[address] IN [facility] NON-INSTITUT ( PRIVATE 01/07/2016 MIGGIANI MD, [...] Status Pt. Type Provider Facility Loc./Unit Complaint [id number] 04/17/2015 13:29:00 2014 23:59:00 DIS Outpatient Dharmesh Luna [facility] [place] med check [id number] 12/17/2014 15:50:00 2014 23:59:00 DIS Outpatient Dharmesh Luna [facility] [place] med recheck [id number] 10/15/2014 13:28:00 Document Registration [id number] 08/13/2014 14:18:00 Document Registration
[2016-10-31] MEDS ORDERED: MAGNESIUM SULFATE 1GM VIAL 2 GM, THIAMINE INJ 100 MG, MULTIVITAMIN INJ 10 ML in D5LR 1,... IV SCH (23:35)
[2016-10-31] MEDS ORDERED: THIAMINE 100 MG/ML (VITAMIN B1) 2 ML VIAL ONE (23:38)
[2016-10-31] MEDS ORDERED: LORazepam 2 MG/ML (ATIVAN) 1 ML VIAL IV ONE (23:50)
--- NOTE | 2016-10-31 23:50 | NUR ---
Pt presents to ER ambulatory with request for detoxification in order to go to [facility]. Pt reports drinking 40 beers and whiskey today. Pt is a poor historian due to intoxification. Pt admitted to ER room 4.
[2016-11-01 00:05] LABS: BILIRUBIN,URINE Negative (Negative); CLARITY,URINE Clear; COLOR,URINE Yellow; GLUCOSE, URINE (UA) Negative (Negative); LEUKOCYTE ESTERASE ,URINE Negative (Negative); PH,URINE 5.5 (5.0 - 8.0); UROBILINOGEN,URINE 0.2 mg/dL (0.2-1.0)
[2016-11-01 00:10] LABS: ALBUMIN 4.6 g/dL (3.4-5.0); CALCULATED IONIZED CALCIUM 3.5 mg/dL (3.8-4.6); MEAN CORPUSCULAR VOLUME 91 FL (80-100); MEAN PLATELET VOLUME 10.2 FL (6.0-9.5); PLATELET COUNT 240 10^3uL (150-450); TOTAL PROTEIN 8.5 g/dL (6.4-8.5); WHITE BLOOD COUNT 7.13 10^3uL (4.0-11.0)
[2016-11-01 00:12] LABS: AMPHETAMINE SCREEN, URINE Positive (Negative); CANNABINOID SCREEN, URINE Positive (Negative); METHAMPHETAMINE SCREEN URINE S NEGATIVE (NEGATIVE); OPIATE SCREEN URINE Negative (Negative); PROPOXYPHENE STAT NEGATIVE (NEGATIVE)
[2016-11-01 00:44] LABS: BAND NEUTROPHILS % 0 % (0-6); LYMPHOCYTES # 5.5 #; SEGMENTED NEUTROPHILS % 17 % (51-67)
[2016-11-01 00:45] LABS: EOSINOPHILS % 1 % (0-4); MONOCYTES # 0.3 #; MONOCYTES % 4 % (3-11); RBC MORPH NORMAL (NORMAL); TOTAL CELLS COUNTED 100
[2016-11-01] MEDS ORDERED: POLYETHYLENE GLYCOL 17 GM (MIRALAX) PACKET PO PRN (00:45)
[2016-11-01] MEDS ORDERED: LORazepam 2 MG/ML (ATIVAN) 1 ML VIAL IV PRN ×2 (00:45→07:56)
[2016-11-01] MEDS ORDERED: FOLIC ACID 1 MG TAB PO ONE (00:45)
[2016-11-01] MEDS ORDERED: ONDANSETRON 4 MG (ZOFRAN) ORAL DISSOLVE TAB PO PRN (00:45)
--- NOTE | 2016-11-01 01:14 | NUR ---
Pt admitted to Med/Surg Room 312. Report given to Theresa Valladares RN. IV intact. Pt taken by cart to room.
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
--- NOTE | 2016-11-01 01:25 | NUR ---
NOTIFIED BARN AND PROPERTY MANAGER OF PT ADMIT
[2016-11-01 01:30] VITALS: BP 127/84
[2016-11-01 01:45] VITALS: BP 127/84
--- NOTE | 2016-11-01 01:45 | NUR ---
Ativan 1 mg IV given for anxiety.
--- NOTE | 2016-11-01 02:51 | History and Physical (E) ---
History & Physical PCP: None CC: intoxication HPI: The pt is 62 yo gentleman with a history of frequent ER visits for alcohol intoxication who presents to the ER again tonight c/o "DT's". His last alcoholic drink was at 1400 today, and told the ER staff that he wished to have help with quitting alcoholism. The pt had a great deal of difficulty with answering questions during my interview and was very intoxicated. He c/o generalized pain, chronic back pain, and wanting ativan. PMH: alcoholism, hepatitis C , chronic back pain, depression with anxiety PSH: none ALLERGIES: Please see list at end of report. HOME MEDICATIONS: Please see list at end of report. FH: pt unable or refused to answer SH: heavy alcohol use, hx of polysubstance abuse including daily marijuana, meth. lives alone ROS unable to obtain due to pt's condition OBJECTIVE GEN: Awake, alert, HEENT- no nystagmus noted CV: RRR S1 S2 normal with no murmur LUNGS: CTA B ABD: Soft, NT/ND with normal bowel sounds. EXTR: No C/C/E. Normal peripheral pulses. NEURO: No sign of active withdrawling, no tremors, . LABS: reviewed ASSESSMENT/PLAN: 1. Alcohol Intoxication - possible withdrawal but unlikely since last drink was <24 hours ago, will start on IVF, thiamine, folic acid, ativan prn for withdrawl. S.W. consulted. 2. Transaminitis- repeat labs, no further alcohol ingestion, 3. Hep C. untreated, 4. chronic back pain - warm compresses, no narcotics at this time. Allergies/Home Medications Allergies: Coded Allergies: No Known Allergies (Verified Allergy, Unknown, 10/16/16) Reported Home Medications Scheduled Lorazepam (Ativan) 1 MG PO Q8H Copies to: End of Report . DEACON RUVALCABA MD November 01, 2016 02:50
--- NOTE | 2016-11-01 03:30 | NUR ---
Pt. resting soundly; resp are even and unlabored on 2L of O2 via NC; IVF infusing without difficulty; call light and H2O within reach.
--- NOTE | 2016-11-01 05:10 | NUR ---
Pt. urinates around perimeter of bed; across floor on the way to the bathroom; scant amount of urine in toilet. Reorientated; O2 reapplied at 2L via NC; back to bed with the bed alarm activated. H2O and call light within reach.
--- NOTE | 2016-11-01 06:15 | NUR ---
Pt. careless with IV; reminded to not pull taunt.
[2016-11-01 07:41] VITALS: BP 144/94
[2016-11-01] MEDS ORDERED: NS FLUSH 3 ML PRN IV (08:00)
[2016-11-01] MEDS ORDERED: NS FLUSH 10 ML PRN IV (08:00)
[2016-11-01] MEDS ORDERED: HYDR-3708 PO (08:35)
[2016-11-01] MEDS ORDERED: FAMOTIDINE 20 MG (PEPCID) TABLET PO SCH (09:00)
[2016-11-01] MEDS ORDERED: THIAMINE 100 MG (VITAMIN B-1) TAB PO SCH (09:00)
[2016-11-01] MEDS ORDERED: NS FLUSH 3 ML DAILY IV SCH (09:00)
--- NOTE | 2016-11-01 09:50 | NUR ---
Pt awake, resting in bed. Repositions himself frequently in bed. Has repeatedly stated "I need my shot" referring to Ativan. IV noted to be partially pulled out and kinked. Informed pt we would need to restart IV. He states "but I need my shot". Informed pt we need to restart IV in order to give him the Ativan. Attempted x2 by this nurse with no success. Avila Lazo RN started a 20g in pt's L hand on 3rd attempt. IVF restarted and Ativan administered. Will continue to monitor.
[2016-11-01 10:40] VITALS: BP 144/94
--- NOTE | 2016-11-01 10:50 | NUR ---
Pt c/o 910 back pain and having a "full blown anxiety attack". No tremors, hyperventilation, noted. Facial grimacing noted. Pt lying on R side. Informed pt that no other mediations were available at this time; Sonny notified.
--- NOTE | 2016-11-01 10:58 | NUR ---
MED REC COMPLETE--current med list obtained from patient interview.
[2016-11-01] MEDS ORDERED: OMEP40CA36 PO (10:59)
--- NOTE | 2016-11-01 11:10 | NUR ---
Pt sleeping soundly in bed. No new orders.
--- NOTE | 2016-11-01 12:00 | NUR ---
Pt awakes and persistently uses call button, stating "I need my shot". Dr Dennis notified.
--- NOTE | 2016-11-01 12:22 | NUR ---
Pt pushes call button stating "I'm going to have a heart attack". States he is having chest pain, SOA, and very high anxiety. VS: 96.7, 148/95, 94% on RA, 83HR, 22RR. Dennis notified, new orders entered.
[2016-11-01] MEDS ORDERED: LORazepam 2 MG/ML (ATIVAN) 1 ML VIAL IV ONE (12:30)
[2016-11-01 12:32] LABS: ALBUMIN 4.3 g/dL (3.4-5.0); ANION GAP 18.6 MEQ/L (3-15); CALCULATED IONIZED CALCIUM 3.9 mg/dL (3.8-4.6); TOTAL PROTEIN 7.5 g/dL (6.4-8.5)
--- NOTE | 2016-11-01 13:05 | NUR ---
PRN Ativan given at this time. Pt states "I'm dying". Encouraged pt to take slow deep breaths and try to calm his mind. Will continue to monitor.
--- NOTE | 2016-11-01 13:30 | NUR ---
Pt expresses frustration, stating "you're not giving me the meds I need, I'm just going to leave". Informed pt we are giving the medications that are ordered and Dr Dennis is aware of the situation and will address it when she returns. Pt states "give me my pants and hoodie, I'm just going to leave". Dr Dennis notified. Informed pt that she will be up in about 15 mins if he'd like to wait to speak to her. Pt states "the Ativan you're giving me isn't working. I think it's not going in right. I just want to go".
--- NOTE | 2016-11-01 13:38 | NUR ---
IVF DC'd, SL removed with catheter tip intact. AMA paperwork reviewed with patient, signed. Skin warm, dry, intact. Resprs nonlabored, even on RA. Pt left at this time via ambulation. States his brother lives a block or two away and he will walk there. scouring pads supervisor and Dr Dennis notified.
--- NOTE | 2016-11-01 16:05 | Discharge Summary (E FT) ---
Discharge Summary (E FT) Admit Date November 01, 2016 at 00:42 Discharge Date November 01, 2016 at 13:38 Admitting Provider Ravinder Sellers MD Primary Care Provider Attending Provider Ravinder Sellers MD Consulting Provider Hospital Course Summary The pt is 62 yo gentleman with a history of frequent ER visits for alcohol intoxication who was admitted from the ED again last night c/o "DT's". His last alcoholic drink was at 1400 yesterday, and told the ED staff that he wished to have help with quitting alcoholism. The pt had a great deal of difficulty with answering questions during admission interview and was very intoxicated. He c/o generalized pain, chronic back pain, and wanting ativan. During his stay, he continued to demand Ativan and c/o back pain. No narcotics were ordered based on his condition at admission and he denied any relief with heat and ice. By 1300 today, he was threatening to leave AMA. He would not wait until I returned to speak with him, he chose to leave. Lab recheck didn't show pancreatitis, but LFTs slightly more elevated. PMH: alcoholism, hepatitis C , chronic back pain, depression with anxiety PSH: none ALLERGIES: Please see list at end of report. HOME MEDICATIONS: Please see list at end of report. FH: pt unable or refused to answer SH: heavy alcohol use, hx of polysubstance abuse including daily marijuana, meth. lives alone ROS GEN: no fever/chills HEART: no chest pain or palpitations LUNGS: no SOA or cough NEURO: +shakes PSYCH: +anxiety OBJECTIVE Vital Signs Date Time Temp Pulse Resp B/P Pulse Ox O2 Delivery O2 Flow Rate FiO2 11/01/16 10:40 97.9 60 22 98 Nasal cannula 11/01/16 07:41 144/94 11/01/16 01:48 2 GEN: Awake, alert CV: RRR S1 S2 normal with no murmur LUNGS: CTA B ABD: Soft, NT/ND with normal bowel sounds. NEURO: Moving around while lying in bed-appears to have trouble lying still, no tremors PSYCH: anxious LABS: Laboratory Results Past 24 Hrs 10/31/16 23:30: Ur Tricyclic Antidepressants Screen Negative, Urine Amphetamines Screen Positive , Urine Barbiturates Screen Negative, Urine Benzodiazepines Screen Negative, Urine Bilirubin Negative, Urine Blood Negative, Urine Cannabinoids Screen Positive, Urine Clarity Clear, Urine Cocaine Screen Negative, Urine Collection Type Clean catch, Urine Color Yellow, Urine Glucose (UA) Negative, Urine Ketones Negative, Urine Leukocyte Esterase Negative, Urine Methadone Screen Negative, Urine Methamphetamines Screen Negative, Urine Nitrite Negative, Urine Opiates Screen Negative, Urine Oxycodone Screen Negative, Urine Phencyclidine Screen Negative, Urine Propoxyphene Screen Negative, Urine Protein Negative, Urine Specific Girard <=1.005, Urine Urobilinogen 0.2, Urine pH 5.5 10/31/16 23:40: Absolute Band Neutrophils 0.0, Alanine Aminotransferase (ALT/SGPT) 144, Albumin 4.6, Albumin/Globulin Ratio 1.179, Alkaline Phosphatase 108, Anion Gap 20.0, Aspartate Amino Transf (AST/SGOT) 149, BUN/Creatinine Ratio 12, Band Neutrophils % 0, Basophils # (Auto) , Basophils # (Manual) 0.1, Basophils % ( Manual) 1, Basophils (%) (Auto) , Blood Morphology Comment Normal, Blood Urea Nitrogen 8, Calcium Level 9.0, Calcium/Ionized Calcium Ratio 3.5, Calculated Osmolality 277, Carbon Dioxide Level 26, Chloride Level 103, Creatinine 0.68, Differential Total Cells Counted 100, Eosinophils # 0.1, Eosinophils # (Auto) , Eosinophils % (Manual) 1, Eosinophils (%) (Auto) , Estimat Glomerular Filtration Rate 148.8, Estimated GFR (Non- 122.9, Glucose Level 91, Hematocrit 45.90, Hemoglobin 15.6, Lymphocytes # 5.5, Lymphocytes # (Auto) , Lymphocytes % (Manual) 77, Lymphocytes (%) (Auto) , Mean Corpuscular Hemoglobin 31.0, Mean Corpuscular Hemoglobin Concent 34.0, Mean Corpuscular Volume 91, Mean Platelet Volume 10.2, Monocytes # 0.3, Monocytes # (Auto) , Monocytes % (Manual) 4, Monocytes (%) (Auto) , Neutrophils # 1.2, Neutrophils # (Auto) , Neutrophils (%) (Auto) , Platelet Count 240, Potassium Level 4.3, Red Blood Count 5.03, Red Cell Distribution Width 13.5, Segmented Neutrophils % 17, Serum Alcohol 313.0, Sodium Level 145, Total Bilirubin 0.5, Total Protein 8.5, White Blood Count 7.13 11/01/16 12:05: Alanine Aminotransferase (ALT/SGPT) 145, Albumin 4.3, Albumin/Globulin Ratio 1.343, Alkaline Phosphatase 102, Anion Gap 18.6, Aspartate Amino Transf (AST/ SGOT) 153, BUN/Creatinine Ratio 15, Blood Urea Nitrogen 10, Calcium Level 9.2, Calcium/Ionized Calcium Ratio 3.9, Calculated Osmolality 278, Carbon Dioxide Level 27, Chloride Level 104, Creatinine 0.67, Estimat Glomerular Filtration Rate 151.3, Estimated GFR (Non- 125.1, Glucose Level 92, Potassium Level 4.4, Serum Alcohol 20.0, Sodium Level 145, Total Bilirubin 0.6, Total Protein 7.5, Lipase 242 ASSESSMENT/PLAN: 1. Alcohol Intoxication - Pt maintained on IVF, thiamine, folic acid, ativan prn for withdrawl. S.W. consulted, but not here long enough for this to happen. 2. Transaminitis- Repeat labs showed slight increase in LFTs-possibly from the alcohol. 3. Hep C. untreated 4. chronic back pain - warm compresses, no narcotics at this time. 5. Anxiety - Unwilling to remain at hospital for further eval and other tx options other than Ativan. Discharge Disposition Pt left AMA Continued Medications: Omeprazole (Omeprazole) 40 Mg Capsule.dr 40 MG PO DAILY CAP Follow up Instructions Unable to give instructions, but pt had said earlier today that he was planning to get into the [employer] [facility] but had to detox first. Copies to: End of Report . Andrea Dennis MD November 01, 2016 16:04
[2016-11-02] MEDS ORDERED: MIRT15TA98 PO (02:42)
[2016-11-02] MEDS ORDERED: LSNP20T PO (02:42)
[2016-11-02] MEDS ORDERED: ESCI10TA49 PO (02:42)
[2016-11-02] MEDS ORDERED: QUET50TA3 PO (02:42)
== END 2016-11-01 13:38 | disposition left against medical advice (07) ==
LOC: ED 23:08 → MED/SURG 11-01 00:42
PROVIDERS: ADMIT Internal Medicine; ATTEND Internal Medicine
DX: F10.220 Alcohol dependence with intoxication, uncomplicated (principal); B19.20 Unspecified viral hepatitis C without hepatic coma; R74.0 Nonspecific elevation of levels of transaminase and lactic acid dehydrogenase [LDH]; G89.29 Other chronic pain; F41.8 Other specified anxiety disorders; M54.9 Dorsalgia, unspecified; Y90.8 Blood alcohol level of 240 mg/100 ml or more
CPT/HCPCS: 36415; 80053; 80307; 81003; 83690; 85025; 93005; 96361; 96365; 96375; 96376; 99284; A9270; G0378; G0480; J2060; J3411; J3475; J7030; 80320; 99218; 99283

== ENCOUNTER 2016-11-02 01:52 | Emergency (ER) | payer MEDICARE, MEDICAID ==
[~2016-11-02] VITALS: Ht 175.3 cm; Wt 83.2 kg
[~2016-11-02 01:52] MED LIST changes: -ESCI10TA49 PO; -LSNP20T PO; -MIRT15TA98 PO; -QUET50TA3 PO
--- OUTSIDE RECORDS SUMMARY | 2016-11-02 01:59 | XMS REPORT | Continuity of Care Document ---
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 23:30 COLLECTION METHOD CLEAN CATCH Color of urine [...] dipstick Negative Negative DRUG SCREEN STAT - 10/31/16 23:30 Urine phencyclidine detection by screening method >25 [...] automated white blood cell (WBC) differential - 10/31/16 23:40 Blood automated leukocyte count 7.13 4.0 -11.0 Erythrocytes 5.03 4.50-5.50 12.0-16.0;g/dL 15.6 13.5-17.0 Hematocrit 45.90 39.00-50.00 Automated erythrocyte mean corpuscular volume 91 80-100 Mean corpuscular hemoglobin (MCH) determination 31.0 26.0-34.0 Automated erythrocyte mean corpuscular hemoglobin concentration measurement ( mass/volume) 34.0 31.0-37.0 Erythrocyte distribution width 13.5 11.8 -15.6 Automated blood platelet count 240 150- 450 Automated blood platelet mean volume measurement 10.2 6.0-9.5 Comprehensive metabolic panel - 10/31/16 23:40 Sodium measurement 91 70-110 CARBON DIOXIDE 26 22-29 Serum or plasma anion gap 20.0 3-15 BLOOD UREA NITROGEN 8 7-18 CREATININE SERUM 0.68 0.8-1.5 Brucella species antibody panel (IgG, IgM) 12 10-20 Estimated glomerular filtration rate (GFR) 148.8 Estimated glomerular filtration rate (GFR) non- 122.9 OSMOLALITY,CALCULATED 277 280-300 CALCIUM 9.0 8.8-10.8 Calculated ionized calcium measurement 3.5 3.8-4.6 BILIRUBIN,TOTAL 0.5 0.1-1.0 Serum or plasma alkaline phosphatase measurement 108 38-126 ASPARTATE AMINO TRANSFERASE 149 15-37 ALANINE AMINOTRANSFERASE 144 30-65 Serum or plasma total protein measurement 8.5 6.4-8.5 Serum or plasma albumin measurement 4.6 3.4-5.0 Serum or plasma albumin/globulin mass ratio 1.179 1.1-1.8 ALCOHOL - 10/31/16 23:40 ALCOHOL 313.0 10-80 Complete blood count, platelets with manual differential - 10/31/16 23:40 Total cell count 100 Blood segmented neutrophils percentage 17 51-67 Blood band neutrophil count as percentage of total leukocytes 0 0-6 LYMPHOCYTES % 77 20-46 Automated monocyte percentage 4 3-11 Eosinophil count auto 1 0-4 Basophils 1 0-2 NEUTROPHILS(SEG) 1.2 NEUTROPHILS # BANDS 0.0 Blood lymphocytes manual count (number/volume) 5.5 Automated blood monocyte count 0.3 Blood absolute eosinophil count 0.1 Basophils 0.1 Erythrocyte morphology assessment NORMAL NORMAL Comprehensive metabolic panel - 11/01/16 12:05 Sodium measurement 92 70-110 CARBON DIOXIDE 27 22-29 Serum or plasma anion gap 18.6 3-15 BLOOD UREA NITROGEN 10 7-18 CREATININE SERUM 0.67 0.8-1.5 Brucella species antibody panel (IgG, IgM) 15 10-20 Estimated glomerular filtration rate (GFR) 151.3 Estimated glomerular filtration rate (GFR) non- 125.1 OSMOLALITY,CALCULATED 278 280-300 CALCIUM 9.2 8.8-10.8 Calculated ionized calcium measurement 3.9 3.8-4.6 BILIRUBIN,TOTAL 0.6 0.1-1.0 Serum or plasma alkaline phosphatase measurement 102 38-126 ASPARTATE AMINO TRANSFERASE 153 15-37 ALANINE AMINOTRANSFERASE 145 30-65 Serum or plasma total protein measurement 7.5 6.4-8.5 Serum or plasma albumin measurement 4.3 3.4-5.0 Serum or plasma albumin/globulin mass ratio 1.343 1.1-1.8 Lipase measurement - 11/01/16 12:05 Lipase measurement 242 23-300 ALCOHOL - 11/01/16 12:05 ALCOHOL 20.0 10-80 Encounters ACCT No. Visit Date/Time Discharge Status Pt. Type Provider Facility Loc./Unit Complaint [id number] 04/17/2015 13:29:00 2014 23:59:00 DIS Outpatient Dharmesh Luna [facility] med check [id number] 12/17/2014 15:50:00 2014 23:59:00 DIS Outpatient Dharmesh Luna [facility] med recheck [id number] 10/15/2014 13:28:00 Document Registration [id number] 08/13/2014 14:18:00 Document Registration
--- NOTE | 2016-11-02 02:00 | NUR ---
PER ALEJANDRO BARBOUR AND DR ELAINE PT STATED HE WAS JUST HERE FOR ATIVAN. DENIED CHEST PAIN
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
[2016-11-02] MEDS ORDERED: LORazepam 2 MG/ML (ATIVAN) 1 ML VIAL IM ONE ×2 (02:05→02:40)
[2016-11-02] MEDS ORDERED: LORazepam 2 MG/ML (ATIVAN) 1 ML VIAL IV ONE (02:40)
[2016-11-02] MEDS ORDERED: LSNP20T PO (02:42)
[2016-11-02] MEDS ORDERED: ESCI10TA49 PO (02:42)
[2016-11-02] MEDS ORDERED: MIRT15TA98 PO (02:42)
[2016-11-02] MEDS ORDERED: QUET50TA3 PO (02:42)
[2016-11-02 02:46] LABS: BASOPHILS % (AUTO) 0 % (0-2); EOSINOPHILS # (AUTO) 0.1 10^3uL; EOSINOPHILS % (AUTO) 1 % (0-4); LYMPHOCYTES # (AUTO) 3.4 X10^3; MEAN CORPUSCULAR HEMOGLOBIN 31.1 PG (26.0-34.0); MEAN CORPUSCULAR HGB CONC 33.9 g/dL (31.0-37.0); MEAN CORPUSCULAR VOLUME 92 FL (80-100); MEAN PLATELET VOLUME 10.2 FL (6.0-9.5); MONOCYTES # (AUTO) 0.5 X10^3; MONOCYTES % (AUTO) 5 % (3-11); NEUTROPHILS # (AUTO) 4.6 X10^3; NEUTROPHILS % (AUTO) 54 % (51-67); PLATELET COUNT 205 10^3uL (150-450); WHITE BLOOD COUNT 8.53 10^3uL (4.0-11.0)
--- NOTE | 2016-11-02 02:47 | NUR ---
ATIVAN WAS GIVEN IM SO NO START/STOP TIMES ON IV
[2016-11-02 02:52] LABS: ALBUMIN 4.3 g/dL (3.4-5.0); ALKALINE PHOSPHATASE 113 U/L (38-126); ANION GAP 21.5 MEQ/L (3-15); BUN/CREATININE RATIO 15 (10-20); CALCULATED IONIZED CALCIUM 3.8 mg/dL (3.8-4.6); TOTAL PROTEIN 8.2 g/dL (6.4-8.5)
--- NOTE | 2016-11-02 03:25 | NUR ---
PT SLEEPING AT THIS TIME
[2016-11-02] MEDS ORDERED: LORazepam 2 MG/ML (ATIVAN) 1 ML VIAL ONE (05:52)
[2016-11-02 06:04] VITALS: BP 124/81
--- NOTE | 2016-11-02 06:25 | NUR ---
PATIENT WAS DISCHARGED AND WAITING IN WAITING ROOM FOR HIS FATHER TO COME PICK HIM UP AROUND 0615. MILLING MACHINE SET UP OPERATOR DID SEE HIM WALK OUTSIDE BUT HE DID NOT COME BACK IN. RN WENT OUTSIDE AND LOOKED AROUND ER PARKING LOT AND SIDE BUT PT NOT FOUND. CALLED PATIENTS FAMILY TO MAKE SURE THEY HAD PICKED HIM UP BUT THEY HAD NOT COME. DID LET THEM KNOW THAT PT LEFT AND HE WAS WEARING A BRIGHT YELLOW SHIRT AND SOCKS
== END 2016-11-02 06:06 | disposition home or self-care (01) ==
LOC: ED 01:56
DX: F10.129 Alcohol abuse with intoxication, unspecified (principal); Y90.8 Blood alcohol level of 240 mg/100 ml or more
CPT/HCPCS: 36415; 80053; 84484; 85025; 96372; 99283; G0480; J2060; 80320; 93010

== ENCOUNTER → 2016-11-02 | Outpatient (CLI) | payer MEDICARE, MEDICAID ==
[~2016-11-02] MED LIST changes: +ESCI10TA49 PO; +LSNP20T PO; +MIRT15TA98 PO; +QUET50TA3 PO
== END ==
LOC: EMS 02:01
PROVIDERS: ATTEND Emergency Medicine
DX: R07.89 Other chest pain (principal)

== ENCOUNTER 2016-11-22 21:56 | Observation (INO) | payer MEDICARE, MEDICAID ==
[~2016-11-22] VITALS: Ht 175.3 cm; Wt 76.0 kg
[~2016-11-22 21:56] MED LIST changes: -AMOX500C5 PO; -QTP100T PO
--- OUTSIDE RECORDS SUMMARY | 2016-11-22 21:59 | XMS REPORT | Continuity of Care Document ---
Author Author [facility]IVE [facility] Organization [facility] Address Unknown Phone Unavailable Care Team Providers Care Proof Clerk Name Role Phone Dharmesh Luna PCP [phone] Insurance Providers Payer Name Policy Number Subscriber Name Relationship Medicare A And B [id number] Anthony Lawson 18 Self / Same As Patient [place] Medicaid [id number] Anthony Lawson 18 Self / Same As Patient Chief Complaint and Reason for Visit Chief Complaint DX: ETOH Reason for Visit Acute alcoholic intoxication Alcoholism Chest pain Intoxication Problems Medical Problems Problem Onset Date Status Pruritic rash 01/07/2012 Resolved Alcohol abuse 04/06/2012 Active 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 Polysubstance (excluding opioids) dependence, daily use Unknown Active Dental caries ~02/15/2014 Active Fall ~04/07/2014 Active Low back pain ~04/07/2014 Active Alcohol abuse ~05/29/2014 Active Emphysema lung Unknown Active Hepatitis C Unknown Active Back pain Unknown Active Chest pain 05/29/2014 Active Acute alcoholic intoxication Unknown Resolved Drug abuse Unknown Active Intoxication 05/29/2014 Resolved Chest pain 05/29/2014 Resolved Bipolar 1 disorder 05/31/2014 Active Risk for falls Unknown Active Fall from slip, trip, or stumble ~07/10/2014 Resolved Pain ~07/10/2014 Active Contusion, hip Unknown Resolved Contusion of shoulder Unknown Resolved Altered mental status 09/25/2014 Resolved Alcohol intoxication 09/25/2014 Active Head injury 09/25/2014 Resolved Cellulitis of wrist Unknown Resolved Cellulitis ~11/25/2014 Active Drug abuse ~11/25/2014 Active Intoxication ~11/25/2014 Active Abscess 11/28/2014 Active Abscess, wrist ~12/02/2014 Active Alcoholism 12/05/2014 Active Chest pain 12/05/2014 Active Intoxication ~12/04/2014 Active Medications Medication Dose Route Sig Days/Qty Instructions Order Date Discontinued Date Status Valsartan 160 Mg ORAL DAILY 01/07/12 02/12/14 Discontinued Famotidine 20 Mg ORAL TWICE A DAY 01/07/12 05/31/14 Discontinued Levothyroxine Sodium (Synthroid) 50 Mcg ORAL DAILY 01/07/12 Discontinued [Methadone] 04/06/12 05/29/14 Discontinued [Oxycodone] 04/06/12 05/29/14 Discontinued [[place]] 04/06/12 02/12/14 Discontinued [place] Carbonate 600 Mg ORAL TWICE A DAY 02/12/14 05/31/14 Discontinued Escitalopram Oxalate 20 Mg ORAL DAILY 02/12/14 02/18/14 Discontinued Aripiprazole 10 Mg ORAL BEDTIME 02/12/14 07/04/14 Discontinued Valsartan 320 Mg ORAL DAILY 02/12/14 07/04/14 Discontinued Levothyroxine Sodium (Synthroid) 50 Mcg ORAL DAILY 02/12/14 Discontinued Topiramate 50 Mg ORAL DAILY 02/12/14 07/04/14 Discontinued Tiotropium [place] 18 Mcg RESPIRATORY (INHALATION) DAILY 02/12/14 Discontinued Ipratropium [place] 12.9 Gm RESPIRATORY (INHALATION) NEEDED 05/31/14 Discontinued Albuterol/Ipratropium 14.7 Gm RESPIRATORY (INHALATION) DAILY 05/29/14 Discontinued Omeprazole 40 Mg ORAL DAILY 05/29/14 07/04/14 Discontinued Mometasone Furoate 1 [place] NASAL DAILY 05/29/14 07/04/14 Discontinued Valsartan 320 Mg ORAL DAILY 05/29/14 05/29/14 Discontinued Clindamycin Hcl 300 Mg ORAL THREE TIMES A DAY 7 Days 05/29/14 Discontinued Levothyroxine Sodium (Synthroid) 50 Mcg ORAL DAILY@07 05/29/1407/04 Discontinued Ibuprofen (Motrin) 400 Mg ORAL EVERY 4HRS PRN PAIN 05/29/14 Discontinued Albuterol/Ipratropium 1 Puff RESPIRATORY (INHALATION) TWICE A DAY 08/1107/04/14 Discontinued Tiotropium [place] 18 Mcg RESPIRATORY (INHALATION) DAILY 05/29/14 Discontinued Methadone Hcl 30 Mg ORAL EVERY 8HRS 05/29/14 07/04/14 Discontinued Oxycodone Hcl 10 Mg ORAL EVERY 4HRS PRN PAIN 05/29/14 07/04/14 Discontinued Chlordiazepoxide 25 Mg ORAL DIRECTED 12 Qty 1 tab 4 times per day x 1 day, then 1 tab 3 times per day x 1 day, then 1 tab 2 times per day x 1 day, then 1 tab 1 time per day x 1 day, then STOP. 05/31/14 07/04/14 Discontinued Albuterol Sulfate 2.5 Mg RESPIRATORY (INHALATION) EVERY 4HRS PRN DYSPNEA 25 Qty 05/31/14 07/04/14 Discontinued [place] Carbonate 300 Mg ORAL TWICE A DAY 05/31/14 07/03/14 Discontinued Escitalopram Oxalate 10 Mg ORAL DAILY 07/11/14 09/25/14 Discontinued Trazodone Hcl 100 Mg ORAL DAILY 07/11/14 09/25/14 Discontinued [Syntroid] 07/11/14 09/25/14 Discontinued Methadone Hcl 10 Mg ORAL FOUR TIMES DAILY 07/11/14 09/25/14 Discontinued Oxycodone Hcl 10 Mg ORAL EVERY 4HRS 07/11/14 09/25/14 Discontinued Omeprazole 40 Mg ORAL DAILY 09/25/14 Active Olanzapine 10 Mg ORAL BEDTIME 09/26/14 11/26/14 Discontinued Trazodone Hcl 100 Mg ORAL BEDTIME PRN prn 09/26/14 11/26/14 Discontinued Chlordiazepoxide 25 Mg ORAL FOUR TIMES DAILY 20 Qty 09/27/14 11/26/14 Discontinued Cephalexin 500 Mg ORAL THREE TIMES A DAY 10 Days 11/25/14 11/28/14 Discontinued Valsartan 160 Mg ORAL DAILY 11/26/14 Active Levothyroxine Sodium 50 Mcg ORAL DAILY@0700 11/26/14 Active Methadone Hcl 10 Mg ORAL EVERY 4HRS PRN PAIN 11/26/14 12/06/14 Discontinued Acetaminophen/Hydrocodone Bitart 1 Tab ORAL EVERY 6 HOURS PRN PAIN 15 Qty 11/28/14 12/06/14 Discontinued Chlordiazepoxide 25 Mg ORAL EVERY 6 HR ON SCHEDULE 30 Qty 12/06/14 Active Clindamycin HCl 450 Mg ORAL EVERY 8 HRS ON SCHEDULE 30 Qty 12/06/14 Discontinued Clindamycin HCl 450 Mg ORAL EVERY 8 HRS ON SCHEDULE 90 Qty 12/06/14 Active Social History No social history. Hospital Discharge Instructions Patient's Instructions Instructions Instructions You are being transferred to inpatient [facility] at [place] Discharge Diet: Regular Plan of Care Discharge Date 12/06/14 4:10pm Disposition 02 XFER SHT-TRM HOSP - ACUTE Instructions/Education Provided Abuse of Alcohol (ED) Prescriptions See Medications Section Follow-up Orders [place] Referrals Rakan Hutchinson ([facility]) Within 2 weeks Address: [address] [place] [id number] Dharmesh Luna ([facility]) 11/30/14 Address: [address] [place] [id number] Functional Status No functional status results. Allergies, Adverse Reactions, Alerts Allergen Type Severity Reaction Status Last Updated No Known Allergies Allergy Unknown Active 05/29/14 Immunizations No immunization records. Vital Signs Acute Vital Signs Vital Response Date/Time Temperature (Fahrenheit) 97.8 Pulse 59 bpm Respirations 18 Height 5 ft 9 in Weight 153 lb Body Mass Index 22.6 kg/m^2 Results Test Source Date Result Interp. Ref. Range Comments Absolute Band Neutrophils November 27, 2014 5:34am 0.2 # Collected by nurse? N Acetaminophen Level December 05, 2014 12:28am < 10.0 mcg/mL L 10.0-30.0 Alanine Aminotransferase (ALT/SGPT) December 06, 2014 5:40am 53 U/L N 30-65 Collected by nurse? N Albumin December 06, 2014 5:40am 3.2 g/dL L 3.4-5.0 Collected by nurse? N Albumin/Globulin Ratio December 06, 2014 5:40am 0.914 L 1.1-1.8 Collected by nurse? N Alkaline Phosphatase December 06, 2014 5:40am 112 U/L N 38-126 Collected by nurse? N Ammonia September 03, 2014 4:12pm 54 umol/L H 9-35 Amylase Level November 25, 2014 3:40am 56 U/L N 25-115 Anion Gap December 06, 2014 5:40am 12.9 MEQ/L N 3-15 Collected by nurse? N Aspartate Amino Transf (AST/SGOT) December 06, 2014 5:40am 54 U/L H 15-37 Collected by nurse? N BUN/Creatinine Ratio December 06, 2014 5:40am 25 H 10-20 Collected by nurse ? N Band Neutrophils % November 27, 2014 5:34am 4 % N 0-6 Collected by nurse? N Basophils # (Auto) December 06, 2014 5:40am 0.0 10^3uL Collected by nurse? N Basophils % (Manual) November 27, 2014 5:34am 0 % N 0-2 Collected by nurse ? N Basophils (%) (Auto) December 06, 2014 5:40am 0 % N 0-2 Collected by nurse ? N Blood Morphology Comment November 27, 2014 5:34am Normal NORMAL Collected by nurse? N Blood Urea Nitrogen December 06, 2014 5:40am 19 mg/dL DH 7-18 Collected by nurse? N C-Reactive Protein May 31, 2014 5:30am 0.90 MG/DL N 0.0-0.9 Collected by nurse? N Calcium Level December 06, 2014 5:40am 8.9 mg/dL N 8.8-10.8 Collected by nurse? N Calcium/Ionized Calcium Ratio December 06, 2014 5:40am 4.0 mg/dL N 3.8-4.6 Collected by nurse? N Calculated Osmolality December 06, 2014 5:40am 278 mosm/L L 280-300 Collected by nurse? N Carbon Dioxide Level December 06, 2014 5:40am 25 mmol/L N 22-29 Collected by nurse? N Chloride Level December 06, 2014 5:40am 108 mmol/L N 98-108 Collected by nurse? N Creatine Kinase MB September 03, 2014 4:12pm 0.6 NG/ML N 0.0-6.0 Creatinine December 06, 2014 5:40am 0.75 mg/dL L 0.8-1.5 Collected by nurse ? N Differential Total Cells Counted November 27, 2014 5:34am 100 Collected by nurse? N Eosinophils # November 27, 2014 5:34am 0.0 # Collected by nurse? N Eosinophils # (Auto) December 06, 2014 5:40am 0.1 10^3uL Collected by nurse? N Eosinophils % (Manual) November 27, 2014 5:34am 0 % N 0-4 Collected by nurse? N Eosinophils (%) (Auto) December 06, 2014 5:40am 1 % N 0-4 Collected by nurse? N Estimat Glomerular Filtration Rate December 06, 2014 5:40am 133.9 Collected by nurse? N Estimated GFR (Non- December 06, 2014 5:40am 110.7 Collected by nurse? N Glucose Level December 06, 2014 5:40am 109 mg/dL N 70-110 Collected by nurse? N Hematocrit December 06, 2014 5:40am 39.10 % N 39.00-50.00 Collected by nurse? N Hemoglobin December 06, 2014 5:40am 13.7 g/dL N 13.5-17.0 Collected by nurse? N Lipase November 25, 2014 3:40am 55 U/L N 23-300 [place] Level July 03, 2014 8:06am <0.10 meq/L L 0.60-1.20 Collected by nurse? N Lymphocytes # November 27, 2014 5:34am 2.1 # Collected by nurse? N Lymphocytes # (Auto) December 06, 2014 5:40am 3.2 X10^3 Collected by nurse? N Lymphocytes % (Manual) November 27, 2014 5:34am 44 % N 20-46 Collected by nurse? N Lymphocytes (%) (Auto) December 06, 2014 5:40am 38 % N 20-46 Collected by nurse? N Magnesium Level December 05, 2014 12:28am 1.9 mg/dL DN 1.6-2.3 Mean Corpuscular Hemoglobin December 06, 2014 5:40am 31.6 PG N 26.0-34.0 Collected by nurse? N Mean Corpuscular Hemoglobin Concent December 06, 2014 5:40am 35.0 g/dL N 31.0-37.0 Collected by nurse? N Mean Corpuscular Volume December 06, 2014 5:40am 90 FL N 80-100 Collected by nurse? N Mean Platelet Volume December 06, 2014 5:40am 10.5 FL H 6.0-9.5 Collected by nurse? N Metamyelocytes % November 27, 2014 5:34am 0 % N 0-1 Collected by nurse? N Monocytes # November 27, 2014 5:34am 0.3 # Collected by nurse? N Monocytes # (Auto) December 06, 2014 5:40am 0.6 X10^3 Collected by nurse? N Monocytes % (Manual) November 27, 2014 5:34am 7 % N 3-11 Collected by nurse ? N Monocytes (%) (Auto) December 06, 2014 5:40am 7 % N 3-11 Collected by nurse ? N Neutrophils # November 27, 2014 5:34am 2.2 # Collected by nurse? N Neutrophils # (Auto) December 06, 2014 5:40am 4.6 X10^3 Collected by nurse? N Neutrophils (%) (Auto) December 06, 2014 5:40am 54 % N 51-67 Collected by nurse? N Phosphorus Level September 27, 2014 11:58am 5.2 mg/dL H 2.4-4.9 Collected by nurse? N Platelet Count December 06, 2014 5:40am 267 10^3uL N 150-450 Collected by nurse? N Potassium Level December 06, 2014 5:40am 3.9 mmol/L N 3.5-5.1 Collected by nurse? N Prothromb Time International Ratio February 12, 2014 4:32am 0.9 N 0.8-1.4 Prothrombin Time February 12, 2014 4:32am 12.5 SEC N 12.3-14.4 Red Blood Count December 06, 2014 5:40am 4.33 10^6uL L 4.50-5.50 Collected by nurse? N Red Cell Distribution Width December 06, 2014 5:40am 13.1 % N 11.8-15.6 Collected by nurse? N Salicylates Level December 05, 2014 12:28am < 1.0 mg/dL L 2.0-20.0 Segmented Neutrophils % November 27, 2014 5:34am 45 % L 51-67 Collected by nurse? N Serum Alcohol December 05, 2014 10:10am 44.0 mg/dL N 10-80 Sodium Level December 06, 2014 5:40am 143 mmol/L N 135-150 Collected by nurse? N Stool Occult Blood (ICT) May 29, 2014 6:00am Negative NEGATIVE Collected by nurse? NSpecimen Comment: Collected by physician Thyroid Stimulating Hormone (TSH) November 26, 2014 4:55pm 1.54 uIU/mL N 0.46-4.68 Total Bilirubin December 06, 2014 5:40am 0.3 mg/dL DN 0.1-1.0 Collected by nurse? N Total Creatine Kinase September 03, 2014 4:12pm 50 U/L L 55-170 Total Protein December 06, 2014 5:40am 6.7 g/dL N 6.4-8.5 Collected by nurse? N Troponin I December 05, 2014 10:10am < 0.012 ng/mL 0.010-0.080 Ur Tricyclic Antidepressants Screen December 04, 2014 11:14pm Negative Negative Urine collection method Clean Catch Urine Amphetamines Screen December 04, 2014 11:14pm Negative Negative Urine collection method Clean Catch Urine Bacteria December 04, 2014 11:14pm None seen /HPF Urine collection method Clean Catch Urine Barbiturates Screen December 04, 2014 11:14pm Negative Negative Urine collection method Clean Catch Urine Benzodiazepines Screen December 04, 2014 11:14pm Positive H Negative Urine collection method Clean Catch Urine Bilirubin December 04, 2014 11:14pm Negative Negative Urine collection method Clean Catch Urine Blood September 03, 2014 4:12pm Negative Negative Urine collection method Clean Catch Urine Cannabinoids Screen December 04, 2014 11:14pm Negative Negative Urine collection method Clean Catch Urine Clarity December 04, 2014 11:14pm Clear Urine collection method Clean Catch Urine Cocaine Screen December 04, 2014 11:14pm Negative Negative Urine collection method Clean Catch Urine Collection Type December 04, 2014 11:14pm Random voided Urine collection method Clean Catch Urine Color December 04, 2014 11:14pm Yellow Urine collection method Clean Catch Urine Glucose (UA) December 04, 2014 11:14pm Negative Negative Urine collection method Clean Catch Urine Ketones December 04, 2014 11:14pm Negative Negative Urine collection method Clean Catch Urine Leukocyte Esterase December 04, 2014 11:14pm Negative Negative Urine collection method Clean Catch Urine Methadone Screen December 04, 2014 11:14pm Negative Negative Urine collection method Clean Catch Urine Methamphetamines Screen December 04, 2014 11:14pm Negative NEGATIVE Urine collection method Clean Catch Urine Nitrite December 04, 2014 11:14pm Negative Negative Urine collection method Clean Catch Urine Opiates Screen December 04, 2014 11:14pm Negative Negative Urine collection method Clean Catch Urine Oxycodone Screen December 04, 2014 11:14pm Positive H NEGATIVE Urine collection method Clean Catch Urine Phencyclidine Screen December 04, 2014 11:14pm Negative Negative Phencyclidine testing by this method can showcross-reactivity with several common medications such as venlafaxine, dextromethorphan, and diphenhydramine. Submission of any positive sample for confirmatory testing is recommended. Urine Propoxyphene Screen December 04, 2014 11:14pm Negative NEGATIVE Results of this screen are qualitative and are presumptiveresults. A more specific method (i.e. GC/MS) must be used if confirmation of results is indicated. Urine Protein December 04, 2014 11:14pm Negative Negative Urine collection method Clean Catch Urine RBC December 04, 2014 11:14pm None seen /HPF Urine collection method Clean Catch Urine RBC (Auto) December 04, 2014 11:14pm Trace-intact H Negative Urine collection method Clean Catch Urine Specific [place] December 04, 2014 11:14pm <=1.005 1.005-1.030 Urine collection method Clean Catch Urine Squamous Epithelial Cells December 04, 2014 11:14pm 0-2 /LPF Urine collection method Clean Catch Urine Urobilinogen December 04, 2014 11:14pm 0.2 mg/dL 0.2-1.0 Urine collection method Clean Catch Urine WBC December 04, 2014 11:14pm None seen /HPF Urine collection method Clean Catch Urine pH December 04, 2014 11:14pm 5.5 5.0 - 8.0 Urine collection method Clean Catch Volume Urine Centrifuged December 04, 2014 11:14pm 12 ml Urine collection method Clean Catch White Blood Count December 06, 2014 5:40am 8.57 10^3uL N 4.0-11.0 Collected by nurse? N Blood Culture Peripheral-:Lab Indicates After Collectio November 26, 2014 8:27pm No Growth in 5 days Aerobic Culture Abscess-Arm, Right November 28, 2014 5:00pm Procedures Procedure Status Date Provider(s) COMPREHEN METABOLIC PANEL completed 11/25/14 ASSAY OF AMYLASE completed 11/25/14 ASSAY OF LIPASE completed 11/25/14 COMPLETE CBC W/AUTO DIFF WBC completed 11/25/14 BLOOD CULTURE FOR BACTERIA completed 11/25/14 HYDRATE IV INFUSION ADD-ON completed 11/25/14 THER/PROPH/DIAG IV INF INIT completed 11/25/14 TX/PRO/DX INJ NEW DRUG ADDON completed 11/25/14 EMERGENCY DEPT VISIT completed 11/25/14 completed 11/25/14 completed 11/25/14 Alcohol (ethanol) any specimen except breath completed 11/25/14 completed 11/25/14 completed 11/25/14 completed 11/25/14 DRAINAGE OF SKIN ABSCESS completed 11/27/14 DEACON RAMOS MD Incision and drainage of soft tissue (procedure) completed 11/28/14 DEACON RAMOS MD Encounters Encounter Location Date/Time Discharged Inpatient [facility] 12/05/14 2:00am Departed Emergency Room [facility] 12/02/14 7:58pm Discharged Inpatient [facility] 11/27/14 8:33am Departed Emergency Room [facility] 11/25/14 2:44am Recent Diagnosis Acute alcoholic intoxication Alcoholism Chest pain Intoxication
--- OUTSIDE RECORDS SUMMARY | 2016-11-22 22:02 | XMS REPORT | Continuity of Care Document ---
Author Author [facility] HCIS Organization [facility] HCIS Address Unknown Phone Unavailable Care Team Providers Care It Assistant Name Role Phone Dharmesh Luna PCP [phone] Insurance Providers Payer Name Policy Number Subscriber Name Relationship Medicare A And B [id number] Anthony Lawson 18 Self / Same As Patient [place] Medicaid [id number] Anthony Lawson 18 Self / Same As [...] 04/06/12 05/29/14 Discontinued [Oxycodone] 04/06/12 05/29/14 Discontinued [[place]] 04/06/12 02/12/14 Discontinued [place] Carbonate 600 Mg ORAL TWICE A DAY 02/12/14 05/31/14 Discontinued Escitalopram Oxalate 20 Mg ORAL DAILY 02/12/14 02/18/14 Discontinued Aripiprazole 10 Mg ORAL BEDTIME 02/12/14 07/04/14 Discontinued Valsartan 320 Mg ORAL DAILY 02/12/14 07/04/14 Discontinued Levothyroxine Sodium (Synthroid) 50 Mcg ORAL DAILY 02/12/14 Discontinued Topiramate 50 Mg ORAL DAILY 02/12/14 07/04/14 Discontinued Tiotropium [place] 18 Mcg RESPIRATORY (INHALATION) DAILY 02/12/14 Discontinued Ipratropium [place] 12.9 Gm RESPIRATORY (INHALATION) NEEDED 05/31/14 Discontinued Albuterol/Ipratropium 14.7 Gm RESPIRATORY (INHALATION) DAILY 05/29/14 Discontinued Omeprazole 40 Mg ORAL DAILY 05/29/14 07/04/14 Discontinued Mometasone Furoate 1 [place] NASAL DAILY 05/29/14 07/04/14 Discontinued Valsartan 320 Mg ORAL DAILY 05/29/14 05/29/14 Discontinued Clindamycin Hcl 300 Mg ORAL THREE TIMES A DAY 7 Days 05/29/14 Discontinued Levothyroxine Sodium (Synthroid) 50 Mcg ORAL DAILY@07 05/29/1407/04 Discontinued Ibuprofen (Motrin) 400 Mg ORAL EVERY 4HRS PRN PAIN 05/29/14 Discontinued Albuterol/Ipratropium 1 Puff RESPIRATORY (INHALATION) TWICE A DAY 08/1107/04/14 Discontinued Tiotropium [place] 18 Mcg RESPIRATORY (INHALATION) DAILY 05/29/14 Discontinued [...] PRN DYSPNEA 25 Qty 05/31/14 07/04/14 Discontinued [place] Carbonate 300 Mg ORAL TWICE A DAY [...] Instructions You are being transferred to inpatient [facility] [place] Discharge Diet: Regular Plan of Care Discharge Date 12/06/14 4:10pm Disposition 02 XFER SHT-TRM HOSP - ACUTE Instructions/Education Provided Abuse of Alcohol (ED) Prescriptions See Medications Section Follow-up Orders [place] Referrals Rakan Hutchinson ([facility]) Within 2 weeks Address: [address] [place] [id number] Dharmesh Luna ([facility]) 11/30/14 Address: [address] [place] [id number] Functional Status No functional status results. [...] 25, 2014 3:40am 55 U/L N 23-300 [place] Level July 03, 2014 8:06am <0.10 meq/L [...] Urine collection method Clean Catch Urine Specific [place] December 04, 2014 11:14pm <=1.005 1.005-1.030 Urine [...] MD Encounters Encounter Location Date/Time Discharged Inpatient [facility] 12/05/14 2:00am Departed Emergency Room [facility] 12/02/14 7:58pm Discharged Inpatient [facility] 11/27/14 8:33am Departed Emergency Room [facility] 11/25/14 2:44am Recent Diagnosis Acute alcoholic intoxication Alcoholism Chest pain Intoxication
[2016-11-22] MEDS ORDERED: QTP100T PO (22:07)
[2016-11-22] MEDS ORDERED: AMOX500C5 PO (22:07)
[2016-11-22] MEDS ORDERED: MAGNESIUM SULFATE 1 GM/2 ML VIAL ONE (22:22)
[2016-11-22] MEDS ORDERED: MULTIVITAMINS (MVI) 2 5 ML VIALS IV ONE (22:22)
[2016-11-22] MEDS ORDERED: THIAMINE 100 MG/ML (VITAMIN B1) 2 ML VIAL ONE (22:22)
[2016-11-22] MEDS: MAGNESIUM SULFATE 1GM VIAL 2 GM, THIAMINE INJ 100 MG, MULTIVITAMIN INJ 10 ML in D5LR 1,... IV SCH (22:37)
[2016-11-22] MEDS ORDERED: SODIUM CHLORIDE FLUSH 3 ML SYR IV ONE (22:45)
[2016-11-22] MEDS ORDERED: SODIUM CHLORIDE FLUSH 10 ML SYR IV PRN (22:45)
--- NOTE | 2016-11-22 23:43 | NUR ---
PATIENT SLEEPING ON SIDE RESP NORMAL SATS 92-94%
[2016-11-22 23:51] LABS: MEAN CORPUSCULAR HEMOGLOBIN 31.3 PG (26.0-34.0); MEAN CORPUSCULAR HGB CONC 34.1 g/dL (31.0-37.0); MEAN CORPUSCULAR VOLUME 92 FL (80-100); MEAN PLATELET VOLUME 10.1 FL (6.0-9.5); PLATELET COUNT 295 10^3uL (150-450)
[2016-11-22 23:58] LABS: ALBUMIN 4.4 g/dL (3.4-5.0); ANION GAP 19.5 MEQ/L (3-15); CALCULATED IONIZED CALCIUM 3.6 mg/dL (3.8-4.6); TOTAL PROTEIN 8.2 g/dL (6.4-8.5)
[2016-11-23] MEDS: MAGNESIUM SULFATE 1GM VIAL 2 GM, THIAMINE INJ 100 MG, MULTIVITAMIN INJ 10 ML in D5LR 1,... IV SCH (00:12)
[2016-11-23] MEDS ORDERED: ONDANSETRON 2 MG/ML (Z0FRAN) 2 ML VIAL IV PRN (00:20)
[2016-11-23 00:32] LABS: BAND NEUTROPHILS % 0 % (0-6); EOSINOPHILS % 0 % (0-4); LYMPHOCYTES # 5.2 #; MONOCYTES # 0.4 #; MONOCYTES % 5 % (3-11); RBC MORPH NORMAL (NORMAL); SEGMENTED NEUTROPHILS % 26 % (51-67); TOTAL CELLS COUNTED 99
--- NOTE | 2016-11-23 00:44 | NUR ---
[facility] HELPER Hermann HARRIS NOTIFIED OF PT ADMIT
--- NOTE | 2016-11-23 00:49 | NUR ---
Pt arrives to room 302 via cart, is accompanied by Debbie ALLEN. Pt is alert, lethargic, intoxicated. Pt is assisted to weight chair and then into bed. Pt is only wearing a t-shirt and brief. Brief is changed at this time. Pt keeps stating, "give me a shot, I need something for pain." This RN explained that we would be speaking with the doctor soon and we could ask for pain medication at that time. IV is infusing without difficulty, no redness, swelling, or s/s of infection noted at this time. Call light is in reach, will continue to monitor.
[2016-11-23 01:06] VITALS: BP 112/67
[2016-11-23 01:08] VITALS: BP 124/64
[2016-11-23] MEDS: D5 1/2 NS IV 1,000 ML IV SCH ×2 (01:14→09:22)
--- NOTE | 2016-11-23 01:15 | NUR ---
Pt c/o nausea, gave Zofran 4mg SIVP for discomfort at this time.
--- NOTE | 2016-11-23 01:30 | NUR ---
Received order from Dr. Pérez for Oxycodone 5/325mg 1 tab PO q 4 hrs PRN pain, and to consult PT & OT for eval and treat. Addendum: 11/23/16 at 0159 by Juanita Trinidad RN order was for oxycodone 10/325mg 1 tab PO q 4 hr PRN pain
--- NOTE | 2016-11-23 01:39 | NUR ---
Gave pt 1 tab PO of Oxycodone 10/325 for discomfort. Will continue to monitor.
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
[2016-11-23] MEDS: oxycODONE/ACETAMINOPHEN 10MG-325 MG (PERCOCET-10) TABLET PO PRN ×4 (01:48→15:54)
[2016-11-23 04:00] VITALS: BP 114/62
[2016-11-23] MEDS: LORazepam 2 MG/ML (ATIVAN) 1 ML VIAL IV PRN ×5 (04:10→15:49)
--- NOTE | 2016-11-23 04:42 | NUR ---
0400-Pt is complaining of anxiety and has uncontrolled tremors, this RN notified Dr. Pérez via text and received a call. Did receive order for Ativan 1mg SIVP q 2hr PRN withdrawal. 0410-Gave Ativan 1mg SIVP for withdrawal, will continue to monitor. 0440-Pt is resting in bed asleep. Will continue to monitor.
--- NOTE | 2016-11-23 06:08 | NUR ---
Pt is having increased tremors, gave Ativan 1mg SIVP for withdrawal. Will continue to monitor.
[2016-11-23 07:01] LABS: ALBUMIN 3.8 g/dL (3.4-5.0); ANION GAP 13.7 MEQ/L (3-15); BASOPHILS % (AUTO) 1 % (0-2); CALCULATED IONIZED CALCIUM 3.6 mg/dL (3.8-4.6); EOSINOPHILS # (AUTO) 0.1 10^3uL; EOSINOPHILS % (AUTO) 1 % (0-4); MEAN CORPUSCULAR HGB CONC 33.9 g/dL (31.0-37.0); MEAN CORPUSCULAR VOLUME 93 FL (80-100); MEAN PLATELET VOLUME 10.1 FL (6.0-9.5); MONOCYTES # (AUTO) 0.9 X10^3; MONOCYTES % (AUTO) 11 % (3-11); NEUTROPHILS # (AUTO) 3.7 X10^3; NEUTROPHILS % (AUTO) 49 % (51-67); PLATELET COUNT 244 10^3uL (150-450); TOTAL PROTEIN 7.3 g/dL (6.4-8.5); WHITE BLOOD COUNT 7.65 10^3uL (4.0-11.0)
[2016-11-23 07:03] LABS: MEAN CORPUSCULAR HEMOGLOBIN 31.3 PG (26.0-34.0)
[2016-11-23 07:46] VITALS: BP 93/60
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
[2016-11-23] MEDS ORDERED: PANTOPRAZOLE IV 40 MG in SODIUM CHLORIDE FLUSH 10 ML IV ONE (09:00)
[2016-11-23 11:37] VITALS: BP 101/58
--- NOTE | 2016-11-23 13:34 | NUR ---
Med Rec completed via Ext med history and conversation with patient.
--- NOTE | 2016-11-23 14:34 | Discharge Instructions (E) ---
Discharge Instructions Discharge Diet: Carbohydrate controlled SHAHZAD LEBLANC DO November 23, 2016 14:34
--- NOTE | 2016-11-23 15:06 | NUR ---
Laron has been resting in bed quietly for the majority of the shift. He will use his call light to make his needs known. He complains of back pain and anxiety. Discharge is planned for later in the afternoon.
--- NOTE | 2016-11-23 15:27 | Discharge Summary (E) ---
Discharge Summary (A) Admit Date/Time November 23, 2016 at 00:16 Discharge Date/Time 11-23-2016 Admitting Provider Jose Cruz Pérez MD Primary Care Provider Attending Provider Jose Cruz Pérez MD Consulting Provider Admission Diagnosis enebriated with memory confusion and confabulation History and Present Illness chronic recurrent weekly problem for this patient. Arrived last noc with c.c. of confusion and etoh level high Hospital Course and Treatment observation overnight and send home. Procedures none Fluids iv saline Electrolytes stable Diet- ssoft Code Status-full DVT prophylaxis-none Disposition-home Discharge Physicial Exam Physical Exam General--clearing sensorium but recall for events not clear as verbalized. HEENT--Normocephalic. MMM in oral cavity. Lungs--Clear to auscultation bilaterally. Nonlabored respirations. Heart--RRR. No murmurs. Abdomen--Normal bowel sounds. Soft. Nondistended. Nontender.hygiene poor. Extremities--No edema. Radiology/Laboratory Data Laboratory Results Past 24 Hrs 11/22/16 22:13: Absolute Band Neutrophils 0.0, Alanine Aminotransferase (ALT/SGPT) 123, Albumin 4.4, Albumin/Globulin Ratio 1.157, Alkaline Phosphatase 130, Anion Gap 19.5, Aspartate Amino Transf (AST/SGOT) 89, BUN/Creatinine Ratio 13, Band Neutrophils % 0, Basophils # (Auto) , Basophils # (Manual) 0.0, Basophils % (Manual) 0, Basophils (%) (Auto) , Blood Morphology Comment Normal, Blood Urea Nitrogen 8, Calcium Level 9.0, Calcium/Ionized Calcium Ratio 3.6, Calculated Osmolality 290 , Carbon Dioxide Level 27, Chloride Level 110, Creatinine 0.62, Differential Total Cells Counted 99, Eosinophils # 0.0, Eosinophils # (Auto) , Eosinophils % (Manual) 0, Eosinophils (%) (Auto) , Estimat Glomerular Filtration Rate 165.5, Estimated GFR (Non- 136.8, Glucose Level 104, Hematocrit 43.10, Hemoglobin 14.7, Lipase 159, Lymphocytes # 5.2, Lymphocytes # (Auto) , Lymphocytes % (Manual) 68, Lymphocytes (%) (Auto) , Mean Corpuscular Hemoglobin 31.3, Mean Corpuscular Hemoglobin Concent 34.1, Mean Corpuscular Volume 92, Mean Platelet Volume 10.1, Metamyelocytes % 0, Monocytes # 0.4, Monocytes # ( Auto) , Monocytes % (Manual) 5, Monocytes (%) (Auto) , Neutrophils # 2.0, Neutrophils # (Auto) , Neutrophils (%) (Auto) , Platelet Count 295, Potassium Level 4.2, Red Blood Count 4.70, Red Cell Distribution Width 12.9, Segmented Neutrophils % 26, Sodium Level 151, Total Bilirubin 0.3, Total Protein 8.2, White Blood Count 7.70 11/22/16 22:15: Serum Alcohol 432.0 11/23/16 05:12: Alanine Aminotransferase (ALT/SGPT) 172, Albumin 3.8, Albumin/Globulin Ratio 1.085, Alkaline Phosphatase 125, Anion Gap 13.7, Aspartate Amino Transf (AST/ SGOT) 297, BUN/Creatinine Ratio 13, Basophils # (Auto) 0.0, Basophils (%) (Auto ) 1, Blood Urea Nitrogen 7, Calcium Level 8.3, Calcium/Ionized Calcium Ratio 3.6 , Calculated Osmolality 285, Carbon Dioxide Level 29, Chloride Level 109, Creatinine 0.56, Eosinophils # (Auto) 0.1, Eosinophils (%) (Auto) 1, Estimat Glomerular Filtration Rate 186.1, Estimated GFR (Non- 153.8, Glucose Level 105, Hematocrit 38.40, Hemoglobin 13.0, Lymphocytes # (Auto) 3.0, Lymphocytes (%) (Auto) 39, Mean Corpuscular Hemoglobin 31.3, Mean Corpuscular Hemoglobin Concent 33.9, Mean Corpuscular Volume 93, Mean Platelet Volume 10.1, Monocytes # (Auto) 0.9, Monocytes (%) (Auto) 11, Neutrophils # (Auto) 3.7, Neutrophils (%) (Auto) 49, Platelet Count 244, Potassium Level 3.8, Red Blood Count 4.15, Red Cell Distribution Width 12.9, Sodium Level 148, Total Bilirubin 0.4, Total Protein 7.3, White Blood Count 7.65 Discharge Provider's Instructions stop etoh abuse Activity Guidelines return to AA Appointment Reminider none Discharge Diet: Carbohydrate controlled Discharge Diagnosis alcholic severe with early memory distorion and hallucinations and early encephalopathy alcholic in nature. Copies to: End of Report CONSTITUTION: HEENT: No change in vision or hearing. No sores in mouth, sore throat. CV: No chest pain, palpitations. PULM: No cough, shortness of breath, difficulty breathing. GI: No nausea, vomiting, constipation, or diarrhea. No blood in stool. : No dysuria. No blood in urine. MS: No new muscle or joint aches and pains. NEURO: No numbness or tingling. No weakness. Lightheadedness per the HPI. INTEG: No rashes, lesions, or sores. ENDO: No heat or cold intolerance. No polydipsia or polyuria. HEME/LYMPH: No easy bruising or bleeding. No swollen glands. PSYCH: No change in mood or behavior.. SHAHZAD LEBLANC DO November 23, 2016 15:25
[2016-11-23 15:58] VITALS: BP 149/92
--- NOTE | 2016-11-23 16:07 | NUR ---
Discharge instructions read, IV removed and the patient is discharged at this time. Escorted out by Mely MUÑOZ and
== END 2016-11-23 16:10 | disposition home or self-care (01) ==
LOC: ED 21:57 → MED/SURG 11-23 00:16
PROVIDERS: ADMIT Emergency Medicine; ATTEND Emergency Medicine
DX: F10.229 Alcohol dependence with intoxication, unspecified (principal); F10.251 Alcohol dependence with alcohol-induced psychotic disorder with hallucinations; G31.2 Degeneration of nervous system due to alcohol; Y90.8 Blood alcohol level of 240 mg/100 ml or more; B18.2 Chronic viral hepatitis C; G89.29 Other chronic pain; M54.9 Dorsalgia, unspecified; F32.9 Major depressive disorder, single episode, unspecified; F41.9 Anxiety disorder, unspecified; F17.210 Nicotine dependence, cigarettes, uncomplicated
CPT/HCPCS: 36415; 70450; 72125; 80053; 83690; 85025; 99284; A9270; C9113; G0480; J2060; J2405; J3411; J3475; 80320; 96374; 96375; 96376

== ENCOUNTER → 2016-11-22 | Outpatient (CLI) | payer MEDICARE, MEDICAID ==
[~2016-11-22] MED LIST changes: +AMOX500C5 PO; +ESCI10TA49 PO; +LSNP20T PO; +MIRT15TA98 PO; +QTP100T PO; +QUET50TA3 PO
== END ==
LOC: EMS 21:50
PROVIDERS: ATTEND Emergency Medicine
DX: R41.82 Altered mental status, unspecified (principal); F10.129 Alcohol abuse with intoxication, unspecified; W01.190A Fall on same level from slipping, tripping and stumbling with subsequent striking against furniture, initial encounter